=== PATIENT | female | born 1940 | race Caucasian/White ===

== ENCOUNTER → 2018-09-07 | Outpatient (CLI) | payer MEDICARE, OTHER ==
--- NOTE | 2018-09-01 18:19 | CONS ---
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 This lesion abuts chest wall and underlying bleb making biopsy risky. We were asked to see regarding empiric definitive stereotactic radiation in her care. ICD-10: C34.12. HISTORY OF PRESENT ILLNESS: The patient is a 78-year-old woman with longstanding COPD. She continues to smoke 1/2 pack per day. She was seen and underwent screening chest x-ray in May 2018, which revealed a suspicious pulmonary nodule by report. She then underwent a CT scan of the chest to confirm this at [facility] on 05/27/2018. This revealed a lobular 1 cm nodule with surrounding fibrosis and scarring in the left upper lobe. Followup PET CT imaging was recommended. She underwent PET CT imaging on 08/05/2018. This revealed a 10 mm subpleural nodule in the left upper lobe with increased metabolic uptake with an SUV of 6.5. No other sites of significant uptake or nodularity were seen elsewhere. On my review, it measured approximately 1.5 x 0.9 cm in size and was more plump on PET CT from 07/[address] imaging from 05/2018 suggestive of modest progression of disease. During this time, she has had no interval symptomatic changes. She has had palpitations on and off for 7 years, unchanged. No significant chest pain. Her shortness of breath with exertion is unchanged. Otherwise, breathing is satisfactory. Some modest cough, nonproductive in nature. She has smoked from age 19 to age 78 1/2-3/4 packs a day and continues to smoke to this time. She lives independently following her 's loss 7 years ago from end-stage COPD. She has had slow weight loss from 143 to 122 pounds over the last 6 years. She has had no headache, nausea or vomiting. She was seen by Dr. Olivia Elizabeth in pulmonary evaluation at which time stereotactic treatment was recommended as the preferred treatment choice. PAST MEDICAL HISTORY: Remarkable for COPD, hypertension, anxiety, bilateral cataract extractions, cholecystectomy, colonoscopy with polypectomy. ALLERGIES: CIPRO CAUSES NAUSEA, SULFATE CAUSES NAUSEA. FAMILY HISTORY: Unremarkable for malignancy. MEDICATIONS: Alprazolam, baby aspirin, flute, fluticasone nasal spray, metoprolol and she will now begin ProAir and Anoro Ellipta inhaler. SOCIAL HISTORY: for 7 years, has 2 daughters who live nearby. Lives independently, retired housewife, continuous smoker, age 19 to age 78 as noted, nonalcohol user. No significant hobbies. PHYSICAL EXAMINATION: GENERAL: Revealed a pleasant, thin woman, appearing her chronologic age. VITAL SIGNS: Weight 122 pounds, blood pressure 122/72, pulse oximetry on room air 97%. HEENT: Revealed fair dentition. No scleral icterus. LYMPH NODES: No palpable cervical or supraclavicular or axillary adenopathy. LUNGS: Decreased breath sounds, no wheezes or rhonchi. HEART: Regular. No gallop or murmur. ABDOMEN: Unremarkable. EXTREMITIES: Reveal no clubbing, cyanosis or edema. NEUROLOGIC: She was alert, appropriate and provided good history. No neurologic deficits noted. LABORATORY DATA: Baseline CBC and chemistry panel are not yet available. Pulmonary function test from 08/19/2018, FEV1 1.12 liters, FVC 2.05 liters and 51% and 71% predicted respectively. In summary, my impression is that of stage I bronchogenic carcinoma of the left upper lobe based on CT and PET scan imaging. Her lesion is close to a bleb and underlying a rib. Biopsy would be difficult and be at risk for post-biopsy pneumothorax. She is a poor candidate for considering surgery. At this time, I offered consideration of ongoing observation versus empiric stereotactic treatment now given that it appears somewhat rounder or plumper in size over the 2-month period suggesting modest progression. She and her daughters were interested in pursuing treatment now rather than observation. I think this was a rational choice. We anticipate a 10 fraction course of treatment, extending the fractionation and reduced daily dose due to the abutment of the chest wall by the malignancy. I discussed treatment, its goals and toxicities in detail with the patient and she elected to proceed I also discussed the critical value of smoking cessation with the patient and her daughter. Thank you for allowing me to participate in her evaluation. TERRI STEVE MD DR: REMI/jeremy JOB#: [id number] / [id number] Kelly Estrella MD
[~2018-09-07] MED LIST: ALBU2.5V8 INH; ALPR0.254 PO; ASPI81TA50 PO; FLUT16SP NS; METO25TA2 PO; RANI-376; UMEC1DIS IH
== END | disposition home or self-care (01) ==
LOC: ONC 08-31 12:16
PROVIDERS: ATTEND Radiology Radiation Oncology
DX: C34.12 Malignant neoplasm of upper lobe, left bronchus or lung (principal); J44.9 Chronic obstructive pulmonary disease, unspecified; I10 Essential (primary) hypertension; F41.9 Anxiety disorder, unspecified; Z90.49 Acquired absence of other specified parts of digestive tract; Z98.42 Cataract extraction status, left eye; Z98.41 Cataract extraction status, right eye; Z87.891 Personal history of nicotine dependence
CPT/HCPCS: 77300; 77301; 77334; 77338; 99203; G0463

== ENCOUNTER → 2020-09-28 | Outpatient (CLI) | payer MEDICARE, OTHER ==
--- NOTE | 2020-09-28 19:02 | RAD ---
EXAM: NM PET/CT SKULL BASE TO MID THIGH EXAM DATE: 09/28/2020 INDICATION: Reason: L LUNG CA C34.12 / Spl. Instructions: / History: RADIOPHARMACEUTICAL: 12.3 mCi of F-18 Fluorodeoxyglucose (FDG) I.V. via the left antecubital fossa. TECHNIQUE: Patient weight: 130 pounds. Following at least four-hour fasting, the patient's blood gluc ose was 106 mg/dl. Approximately an hour and a half after administration of FDG, overlapping emissio n scanning was performed from the orbital meatal line through the pelvis. A low-dose CT was performe d for attenuation correction purposes and anatomic localization. Fused images of PET and CT were revi ewed. Any standardized uptake values (SUV) reported are maximum values within a volume region of int erest, expressed in gm/ml. COMPARISON: Chest CT without IV contrast of 03/09/2020 FINDINGS: PET: In the head and neck, no abnormal FDG uptake. In the chest, dominant nodule in the anterior superior left upper lobe abutting the pleura shows abno rmal FDG uptake to max SUV of 6.2. There is a cluster of small pulmonary nodules in the right lung apex at the same level that showed co mbined FDG uptake to max SUV of 2.2. The background mediastinal activity shows a max SUV of 2.6. No other abnormal FDG uptake in the chest. In the abdomen and pelvis, there is subtle FDG uptake in the lateral limb left adrenal gland to max S UV of 3.9. In the bones, subtle FDG uptake to max SUV of 2.9 is present in the lateral left seventh rib, associa mali with a nondisplaced fracture (image 198 series 3). CT: In the head and neck, no mass or adenopathy is apparent. Chest shows background centrilobular emphysema the lungs no pleural effusion or CT evidence of thorac ic adenopathy on noncontrast imaging. The left upper lobe pulmonary nodule appears marginally larger compared with the previous study, stacie uring 1.7 x 1.8 cm AP by transverse diameter compared with 1.2 x 1.0 cm at the comparable level (imag e 120 series 3 this exam compared with image 89 series 2 on 03/09/2020). Likewise, cluster of nodules on the right lung apex are marginally larger in the interval. In particu lar, the more peripheral of the clustered nodules (image 112 series 3 this exam) is larger, now measu ring 6 mm, compared with 2 mm previously (image 78 series 2 as the prior exam). No new pulmonary nodu les identified. The heart is normal in size shows multivessel coronary calcifications. The thoracic aorta is is jorge l in caliber. Abdomen and pelvis show mild fullness of the left adrenal gland without a discrete mass. There is res piratory motion artifact that degrades detailed assessment. No bulky abdominal adenopathy. There are curvilinear densities near the gallbladder fossa of uncertain significance. This could represent a couch rgical repair of a biopsy site. The gallbladder is not well seen and may be surgically absent. The bowel shows no evidence of obstruction, perforation or acute inflammation. There is extensive col onic diverticuli. The urinary bladder is unremarkable. The uterus is not seen and may be absent. No adnexal mass. No pe lvic free fluid or fluid collection. The bones are demineralized. No acute or aggressive osseous lesions are seen. IMPRESSION: 1. Left upper lobe pulmonary nodule is marginally larger in the interval which could reflect posttrea tment changes. Max SUV FDG activity currently is 6.2. Recommend correlation with previous imaging whe n available. 2. Slight interval increase in nodularity of the right lung apex, max SUV of 2.2, close to background mediastinal uptake. Attention on follow-up recommended. Electronically signed by: Jose Lawrence MD (09/28/2020 6:59 PM) [id number]
== END ==
LOC: PETSC 10:23
PROVIDERS: ATTEND Radiology Radiation Oncology
DX: C34.12 Malignant neoplasm of upper lobe, left bronchus or lung (principal); J43.2 Centrilobular emphysema; R91.8 Other nonspecific abnormal finding of lung field; I25.10 Atherosclerotic heart disease of native coronary artery without angina pectoris
CPT/HCPCS: 78815; A9552

== ENCOUNTER 2020-10-08 08:15 | Outpatient (CLI) | payer MEDICARE, OTHER ==
[~2020-10-08] VITALS: Ht 165.1 cm; Wt 60.8 kg
[2020-10-08] VITALS (13 sets, daily range): BP systolic 92–146; BP diastolic 50–85
[2020-10-08] MEDS ORDERED: LIDOCAINE WITH 8.4% SOD BICARB 3 ML DISP.SYRIN. ONE (08:51)
[2020-10-08] MEDS ORDERED: TRAM50TA PO (08:55)
[2020-10-08] MEDS ORDERED: PRAV10TA2 PO (08:55)
[2020-10-08] MEDS ORDERED: MIDAZOLAM HCL/PF 2 MG/2 ML VIAL. ONE (08:57)
[2020-10-08] MEDS ORDERED: fentaNYL PF VIAL 100 MCG/2 ML VIAL ONE (08:58)
[2020-10-08 09:05] LABS: BASO # 0.1 x10^3/uL (0.0-0.2); BASO % 1 % (0-3); EOS # 0.3 x10^3/uL (0.0-0.7); EOS % 4 % (0-3); HEMATOCRIT 46.6 % (36.0-47.0); HEMOGLOBIN 15.3 g/dL (12.0-15.5); LYMPH # 1.8 x10^3/uL (1.0-4.8); LYMPH % 25 % (24-48); MEAN CORPUSCULAR HEMOGLOBIN 30 pg (25-35); MEAN CORPUSCULAR HGB CONC 33 g/dL (31-37); MEAN CORPUSCULAR VOLUME 91 fL (79-100); MONO # 0.5 x10^3/uL (0.0-1.1); MONO % 7 % (0-9); NEUT # 4.6 x10^3/uL (1.8-7.7); NEUT % 63 % (31-73); PLATELET COUNT 203 x10^3/uL (140-400); RED BLOOD COUNT 5.15 x10^6/uL (3.50-5.40); RED CELL DISTRIBUTION WIDTH 13.9 % (11.5-14.5); WHITE BLOOD COUNT 7.2 x10^3/uL (4.0-11.0)
[2020-10-08 09:08] LABS: CALCIUM 8.9 mg/dL (8.5-10.1); CREATININE 0.8 mg/dL (0.6-1.0); GFR 69.4; POTASSIUM 4.4 mmol/L (3.5-5.1)
[2020-10-08] MEDS ORDERED: fentaNYL PF VIAL 100 MCG/2 ML VIAL IV ONE (09:15)
[2020-10-08] MEDS ORDERED: MIDAZOLAM HCL/PF 2 MG/2 ML VIAL. IV ONE (09:15)
[2020-10-08] MEDS ORDERED: LIDOCAINE WITH 8.4% SOD BICARB 3 ML DISP.SYRIN. IJ ONE (09:15)
[2020-10-08 09:21] LABS: PROTHROMBIN TIME PATIENT 12.8 SEC (11.7-14.0)
--- NOTE | 2020-10-08 12:14 | NUR ---
PIV removed. D/C instructions provided on site care, sedation, biopsy. Patient and daughter verbalized understanding. No bleeding noted at this time. Patient taken to vehicle w/ daughter, who is driving, via wheelchair. Addendum: 10/08/20 at 1217 by DRISS GRAHAM RN All belongings, including cell phone, taken w/ patient at time of d/c.
--- NOTE | 2020-10-08 14:12 | RAD ---
10/08/2020 12:07 PM Procedure: CT-guided biopsy, left upper lung nodule Clinical Indication: History of lung cancer, PET avid left upper lung nodule Discussion: The procedure was explained in its entirety to the patient or the patients designated sales representative church furniture by a member of the treatment team, including a discussion of the risks, benefits and commonly accepted alternatives to the procedure, as well as the expected consequences of no therapy whatsoever. Discussion of the risks included, but was not limited to, those that are most frequent and those that are rare but possibly severe or life-threatening, as well as the possibility of unforeseen complications. All elements of maximal sterile barrier technique including the use of a cap, mask, sterile gown, sterile gloves, large sterile sheet, appropriate hand hygiene, and 2% chlorhexidine for cutaneous antisepsis (or acceptable alternative antiseptic per current guidelines) were followed for this procedure. The patient was placed in the supine position on the CT scanner. Timeout procedure was performed. Left upper chest was prepped and draped using sterile barrier technique. 1% lidocaine was administered for local anesthesia. Under intermittent CT guidance a 17-gauge needles advanced into the nodule. Core biopsy samples were obtained. A pneumothorax prevention device was deployed as the guiding needle was removed. Repeat imaging demonstrates no pneumothorax or other immediate complication. The patient tolerated the procedure well. The procedures performed under conscious sedation including continuous cardiopulmonary monitoring via dedicated sedation nurse. Kbdi-es-aqrg sedation time: 20 minutes Impression: CT-guided biopsy, left upper lung nodule PQRS Compliance Statement: One or more of the following individualized dose reduction techniques were utilized for this examination: 1. Automated exposure control 2. Adjustment of the mA and/or kV according to patient size 3. Use of iterative reconstruction technique
--- NOTE | 2020-10-08 17:08 | RAD ---
EXAM: XR CHEST 1V INDICATION: Reason: 1200 followup CXR / Spl. Instructions: / History: . TECHNIQUE: Single view COMPARISON: CT-guided lung biopsy of 10/08/2020 FINDINGS: The heart size is normal. The great vessels appear unremarkable. There is no hilar or mediastinal mass. Lungs show emphysematous changes and an ill-defined opacity in the left upper lung compatible with re cently biopsied lung nodule. There is no pleural effusion or pneumothorax. There are no significant osseous abnormalities. IMPRESSION: No evidence of a pneumothorax status post post left upper lobe lung biopsy. Electronically signed by: Jose Lawrence MD (10/08/2020 5:05 PM) [id number]
--- NOTE | 2020-10-10 15:09 | PATHOLOGY ---
[facility] Accession Number: [id number] . 01 Material submitted: . lung - LEFT LUNG BIOPSY. Modifiers: left . 01 Clinical history: . LEFT UPPER LOBE LUNG BIOPSY . 02 Diagnosis: Lung tissue, left upper lobe lung needle biopsies: - SQUAMOUS CELL CARCINOMA. SEE COMMENT. (JPM:jason; 10/10/2020) QMS 10/10/2020 0930 Local . 02 Comment: Sections of the left upper lobe lung needle biopsy show extensive replacement of lung parenchyma by a malignant epithelial neoplasm. The tumor cells are present in irregular solid nests within an inflamed reactive desmoplastic stroma. The tumor cells have modest amounts of pale eosinophilic cytoplasm, and possess rounded to ovoid, mild to focally moderately pleomorphic nuclei. There is no evidence of keratinization. Several mitotic figures are noted. There is no evidence of glandular differentiation. A panel of immunoperoxidase stains is obtained on block A1 and yield the following results: . Cytokeratin 7: Tumor cells focally positive; residual pneumocytes strongly positive P40: Tumor cells positive Chromogranin: Tumor cells negative CD56: Tumor cells negative Synaptophysin: Tumor cells negative TTF-1: Tumor cells negative; residual pneumocytes positive Napsin A: Tumor cells negative; residual pneumocytes positive Ki-67: Tumor cells show relatively low proliferation index. . The morphologic and immunophenotypic findings are supportive of the diagnosis of a moderately differentiated squamous cell carcinoma. The case has been co-reviewed by Dr. Ruff, who concurs with the diagnosis on 10/10/20. The results are reported to Dr. Doan on 10/10/2020. (JPM:jason; 10/10/2020) . Special stains performed: Immunoperoxidase stains for CK7, p40, chromogranin, CD56, synaptophysin, TTF-1, napsin A, Ki-67. . 02 Electronically signed: . Leandro Gordon MD, Pathologist NPI- [id number] . 01 Gross description: . The specimen is received in formalin, labeled "Meera Sampson, left lung biopsy". Received is a single needle core of pale rabago soft tissue measuring 1.0 cm in length by 0.1 cm in diameter. The specimen is submitted entirely in cassette A1. (CAA; 10/08/2020) QAC/QAC 10/08/2020 1729 Local . 02 Pathologist provided ICD-10: C34.12 . 02 CPT . 946059, H20504, Q29026 Specimen Comment: Report sent to / Performed at: 01 [facility] [address], [place] [id number] MD Kobe Romeo MD Phone: [phone] Performed at: 02 [facility] [address], [place] [id number] MD Leandro Gordon MD Phone: [phone]
== END 2020-10-08 12:18 | disposition home or self-care (01) ==
LOC: INTRAD 08:15
PROVIDERS: ATTEND Radiology Radiation Oncology
DX: C34.12 Malignant neoplasm of upper lobe, left bronchus or lung (principal); I10 Essential (primary) hypertension; E78.00 Pure hypercholesterolemia, unspecified; J44.9 Chronic obstructive pulmonary disease, unspecified; K21.9 Gastro-esophageal reflux disease without esophagitis; F17.210 Nicotine dependence, cigarettes, uncomplicated; Z90.49 Acquired absence of other specified parts of digestive tract; Z98.890 Other specified postprocedural states; Z79.899 Other long term (current) drug therapy; Z79.82 Long term (current) use of aspirin; Z88.2 Allergy status to sulfonamides; Z88.1 Allergy status to other antibiotic agents; Z20.822 Contact with and (suspected) exposure to COVID-19
CPT/HCPCS: 32408; 36415; 71045; 80048; 85025; 85610; 87426; 99152; C9803; J2250; J3010; J3490; U0003; 88305; 88341; 88342

== ENCOUNTER → 2021-04-05 | Outpatient (CLI) | payer MEDICARE, OTHER ==
[2020-10-08 12:00] VITALS: BP 92/50
[~2021-04-05] MED LIST changes: +PRAV10TA2 PO; +TRAM50TA PO
--- NOTE | 2021-04-05 13:16 | RAD ---
EXAM: Dual modality PET-CT Scan DATE: 04/05/2021 RADIOPHARMACEUTICAL: 15 mCi F-18 fluorodeoxyglucose (FDG) IV. CLINICAL HISTORY: Lung cancer restaging. COMPARISON: 09/28/2020 TECHNIQUE: Approximately 45 minutes after tracer administration, routine, attenuation-corrected Posit ángel Emission Tomography (PET) images were obtained from the level of the base of the skull through th e level of the mid thighs. Tomographic reconstructions are reviewed in coronal, transaxial and sagitt al planes. Non-contrast CT imaging was performed for attenuation correction and localization purpose s only. These images do not constitute a diagnostic-quality CT examination and were not used to diag nose disease independently of the PET images. The blood glucose level was 91 mg/dL at the time of FDG administration. *One or more of the following individualized dose reduction techniques were utilized for this examina tion: 1. Automated exposure control. 2. Adjustment of the mA and/or kV according to patient size. 3. Use of iterative reconstruction technique. FINDINGS: There is increased radiotracer activity with a maximum SUV of 3.9 associated with a 1.8 cm anterior right upper lobe nodule with adjacent 8 mm spiculated nodule and surrounding groundglass. There is increased radiotracer activity with a maximum SUV of 3.1 associated with a 1.5 cm pleural-ba sed nodule with adjacent groundglass and architectural distortion within the anterior left upper lobe . There is increased radiotracer activity within maximum SUV of 4.3 associated with a 1.2 cm nodule wit h surrounding groundglass within the superior segment of the right lower lobe. There is increased radiotracer activity associated with thickening of the left greater than right adr enal gland, with SUVs of 4.8 and 4.3. There is nonspecific increased radiotracer activity within SUV of 2.5 within the nonenlarged right hi lar lymph node. No additional lymph node with radiotracer activity above the blood pool is seen. The CT portion of the exam demonstrates a pleural-based nodule with adjacent groundglass opacity and architectural distortion within the anterior left upper lobe measuring approximately 1.5 cm. This is decreased compared to the prior PET/CT. There is a 1.8 cm anterior right upper lobe nodule with adjac ent 8 mm spiculated nodule and surrounding groundglass. This is increased compared to the prior study . There is a 1.2 cm nodule with surrounding groundglass within the superior segment of the right lowe r lobe. This is increased compared to the prior study. There is pleural parenchymal scarring within the lingula and medial right middle lobe. There is emphy sema. There is no pleural effusion or pneumothorax. The heart is normal in size. There is aortic and coronary artery atherosclerosis. There are nonspecific mediastinal lymph nodes. For reference purpose s, there is a 9 mm precarinal lymph node. Stable compared to the prior study. There are calcified lef t hilar and lingular granulomas. No hepatic lesion is seen. No pancreatic lesion is seen. There are splenic granulomas. The adrenal gl ands are unremarkable. There are simple cysts within both kidneys. Follow-up isn't routinely performe d for simple cysts. No abnormally thickened or dilated loop of bowel is seen. There is colonic divert iculosis. The bladder is empty. The uterus and adnexal regions are unremarkable. No pathologically en larged mesenteric or retroperitoneal lymph node is seen. The visualized portions of the brain demonstrate mild age-appropriate cerebral volume loss and cerebr al white matter changes due to chronic small vessel disease. There is evidence of lens surgery. There is no neck lymphadenopathy. There is calcified atherosclerotic plaque involving the carotid bifurcat ions. There are degenerative changes throughout the spine. There is no acute or suspicious osseous le jose. IMPRESSION: 1. Interval increase in a 1.2 cm radiotracer avid nodule with surrounding groundglass within the supe rior segment of the right lower lobe with an SUV of 4.3, the appearance of which is concerning for pr imary bronchogenic neoplasm. 2. Interval increase in a 1.8 cm radiotracer avid nodule with adjacent radiotracer avid 8 mm spiculat ed nodule within the anterior right upper lobe with a maximum SUV of 3.9, the appearance of which is concerning for primary bronchogenic neoplasm. 3. Interval decrease in the size of a 1.5 cm pleural-based nodule with adjacent groundglass and archi tectural distortion within the anterior left upper lobe with a maximum SUV of 3.1. This previously de monstrated an SUV of 6.2, favoring interval treatment response. 4. Increased activity involving thickened left greater than right adrenal glands with SUVs of 4.8 and 4.3. This is increased compared to the prior study. Metastatic disease is not excluded. 5. Mild radiotracer activity within SUV of 2.5 within a nonenlarged nonspecific right hilar lymph nod e. No additional lymph node with abnormal radiotracer activity above the blood pool is seen. 6. Please refer to the above report for additional findings regarding the non-PET portion of the exam . Electronically signed by: Karen Go MD (04/05/2021 1:13 PM) [id number]
== END ==
LOC: PETSC 08:30
PROVIDERS: ATTEND Radiology Radiation Oncology
DX: C34.12 Malignant neoplasm of upper lobe, left bronchus or lung (principal); R91.8 Other nonspecific abnormal finding of lung field; J43.9 Emphysema, unspecified; I25.10 Atherosclerotic heart disease of native coronary artery without angina pectoris; K57.30 Diverticulosis of large intestine without perforation or abscess without bleeding; M47.819 Spondylosis without myelopathy or radiculopathy, site unspecified; R90.82 White matter disease, unspecified; K13.4 Granuloma and granuloma-like lesions of oral mucosa
CPT/HCPCS: 78815; A9552

== ENCOUNTER 2021-04-16 08:55 | Inpatient (IN) | payer MEDICARE, OTHER ==
[2021-04-16] VITALS (16 sets, daily range): BP systolic 94–154; BP diastolic 45–83
[~2021-04-16] VITALS: Ht 165.1 cm; Wt 54.8 kg
[2021-04-16 09:49] LABS: BASO # 0.1 x10^3/uL (0.0-0.2); BASO % 1 % (0-3); EOS # 0.2 x10^3/uL (0.0-0.7); EOS % 3 % (0-3); HEMOGLOBIN 15.6 g/dL (12.0-15.5); LYMPH # 1.4 x10^3/uL (1.0-4.8); LYMPH % 18 % (24-48); MEAN CORPUSCULAR HEMOGLOBIN 30 pg (25-35); MEAN CORPUSCULAR HGB CONC 34 g/dL (31-37); MEAN CORPUSCULAR VOLUME 90 fL (79-100); MONO # 0.5 x10^3/uL (0.0-1.1); MONO % 7 % (0-9); NEUT # 5.6 x10^3/uL (1.8-7.7); NEUT % 71 % (31-73); PLATELET COUNT 208 x10^3/uL (140-400); RED BLOOD COUNT 5.13 x10^6/uL (3.50-5.40); WHITE BLOOD COUNT 7.8 x10^3/uL (4.0-11.0)
[2021-04-16] MEDS ORDERED: LIDOCAINE WITH 8.4% SOD BICARB 3 ML DISP.SYRIN. ONE (10:12)
[2021-04-16] MEDS ORDERED: fentaNYL PF VIAL 100 MCG/2 ML VIAL ONE (10:37)
[2021-04-16] MEDS ORDERED: MIDAZOLAM HCL/PF 2 MG/2 ML VIAL. ONE (10:37)
[2021-04-16] MEDS ORDERED: MIDAZOLAM HCL/PF 2 MG/2 ML VIAL. IV ONE (11:00)
[2021-04-16] MEDS ORDERED: LIDOCAINE WITH 8.4% SOD BICARB 3 ML DISP.SYRIN. IJ ONE (11:00)
[2021-04-16] MEDS ORDERED: fentaNYL PF VIAL 100 MCG/2 ML VIAL IV ONE (11:00)
--- NOTE | 2021-04-16 13:13 | NUR ---
Pt transferred to room 578; report given to Nayana, prior to transfer. Pt taken up per cart, with no complications. Pt stood and transferred from the cart to the bed. Pt denies any increased SOB, chest pain, or discomfort. When inspecting site after pt. transfer; there was subcutaneous air noted. Dr. Esteves walked in the room at the time; and subcutaneous air was noted with him. He explained to Ric Zelaya RN and the patient that he was going to consult pulmonary. Dr. Parson also notified of pt's subcutaneous air. Transfer of care completed in the room with Alejandrina BARBA; subcutaneous air assessment completed with Alejandrina BARBA, and border marked with brandee.
--- NOTE | 2021-04-16 14:50 | RAD ---
EXAMINATION: XR CHEST 1V CLINICAL HISTORY: Follow-up pneumothorax post right lung biopsy EXAM DATE/TIME: 04/16/2021 1:19 PM COMPARISON: CT chest 03/09/2020 FINDINGS: Lines, Tubes, and Devices: Right pigtail pleural drainage catheter with abrupt angulation in the cath eter several centimeters proximal to the pigtail, cannot exclude a kink in the catheter tubing. Cardiomediastinal Silhouette: Normal heart size. Aortic atherosclerotic calcification. Lungs and Pleura: Small right apical pneumothorax. Mild patchy opacities predominantly in the right l ower lung zone, likely postprocedural and may be related to subsegmental atelectasis. Curvilinear and patchy scarring in the left upper lung zone. Small patchy opacity in the right upper lung zone, bett er appreciated on comparison CT. No evidence of pleural effusion. Bones and Soft Tissues: Degenerative changes and mild levoconvex curvature and the thoracic spine. IMPRESSION: Small right apical pneumothorax and probable postprocedural changes in the right lung as described. Right pigtail pleural drainage catheter, possibly kinked as described. Recommend clinical correlation . Additional nonacute findings as described. Electronically signed by: Garry Mcmahon DO (04/16/2021 2:47 PM) [facility]
--- NOTE | 2021-04-16 15:11 | RAD ---
CT-guided biopsy, right lower lobe pulmonary nodule INDICATION: History of left upper lobe lung cancer. 2 right-sided enlarging nodules which are PET shira d or seen on most recent imaging from April 05, 2021. Radiation oncologist requests biopsy. Consent: The procedure was explained in its entirety to the patient or the patients designated repres entative by a member of the treatment team, including a discussion of the risks, benefits and commonl y accepted alternatives to the procedure, as well as the expected consequences of no therapy whatsoev er. Discussion of the risks included, but was not limited to, those that are most frequent and thos e that are rare but possibly severe or life-threatening, as well as the possibility of unforeseen com plications. The patient was placed on the CT scanner in the prone position. A timeout procedure was performed. CT imaging redemonstrates a nodule in the right lower lobe measuring approximately 9 mm in diameter. The patient was prepped and draped using maximum sterile technique, including the use of: Current seth deline approved cutaneous antisepsis, a large sterile sheet to establish a sterile field. Additionall y the synthetic resin operator wore a hat, mask, sterile gloves, a sterile gown during the procedure. 1% lidocaine wa s administered for local anesthesia. Under intermittent CT guidance a 17-gauge needle was advanced pe ripherally to the nodule. Core biopsy samples were obtained. The needle was removed. Postbiopsy CT im aging was then performed demonstrating a large and increasing pneumothorax. A chest tube was felt to be necessary. 5 Citizen [place] sheathed needle was advanced into the pleural space from a posterior approach. A guidewire is advanced into the pleural space over which following dilatation and 8 Citizen [place] pigtail chest tube was placed. Air was freely aspirated. Catheter position was confirmed with CT. The cathete r was connected to Pleur-evac device at -20 cm water. The patient was admitted for observation. Inter nal medicine and pulmonary consults were obtained. IMPRESSION: 1. CT-guided biopsy, right lower lobe pulmonary nodule 2. CT-guided placement of right thoracostomy tube for postbiopsy pneumothorax Electronically signed by: Prince Parson MD (04/16/2021 3:09 PM) [id number]
--- NOTE | 2021-04-16 15:11 | RAD ---
CT-guided biopsy, right lower lobe pulmonary nodule INDICATION: History of left upper lobe lung cancer. 2 right-sided enlarging nodules which are PET shira d or seen on most recent imaging from April 05, 2021. Radiation oncologist requests biopsy. Consent: The procedure was explained in its entirety to the patient or the patients designated repres entative by a member of the treatment team, including a discussion of the risks, benefits and commonl y accepted alternatives to the procedure, as well as the expected consequences of no therapy whatsoev er. Discussion of the risks included, but was not limited to, those that are most frequent and thos e that are rare but possibly severe or life-threatening, as well as the possibility of unforeseen com plications. The patient was placed on the CT scanner in the prone position. A timeout procedure was performed. CT imaging redemonstrates a nodule in the right lower lobe measuring approximately 9 mm in diameter. The patient was prepped and draped using maximum sterile technique, including the use of: Current seth deline approved cutaneous antisepsis, a large sterile sheet to establish a sterile field. Additionall y the plunger scoop operator wore a hat, mask, sterile gloves, a sterile gown during the procedure. 1% lidocaine wa s administered for local anesthesia. Under intermittent CT guidance a 17-gauge needle was advanced pe ripherally to the nodule. Core biopsy samples were obtained. The needle was removed. Postbiopsy CT im aging was then performed demonstrating a large and increasing pneumothorax. A chest tube was felt to be necessary. 5 Maur[place]ian sheathed needle was advanced into the pleural space from a posterior approach. A guidewire is advanced into the pleural space over which following dilatation and 8 [place]ian pigtail chest tube was placed. Air was freely aspirated. Catheter position was confirmed with CT. The cathete r was connected to Pleur-evac device at -20 cm water. The patient was admitted for observation. Inter nal medicine and pulmonary consults were obtained. IMPRESSION: 1. CT-guided biopsy, right lower lobe pulmonary nodule 2. CT-guided placement of right thoracostomy tube for postbiopsy pneumothorax Electronically signed by: Prince Parson MD (04/16/2021 3:09 PM) [id number]
--- NOTE | 2021-04-16 15:18 | HP ---
ADMIT DATE: 04/16/2021 CHIEF COMPLAINT: Pneumothorax. HISTORY OF PRESENT ILLNESS: The patient is a pleasant elderly female who has known lung cancer. She actually has undergone radiation therapy and I think chemotherapy. Things have been going well, but she now has developed a new left lung nodule. The patient was sent in to Dr. Parson of the Interventional Radiology department to do a biopsy of the lung nodule. Postprocedure, she had a small pneumothorax. Dr. Parson called me and explained the situation. We have decided to admit the patient. We placed a chest tube. We are consulting Pulmonary Medicine. PAST MEDICAL HISTORY: COPD, lung cancer, radiation therapy, chemotherapy, asthma, hyperlipidemia, hypertension, arthritis, allergic rhinitis. ALLERGIES: SULFA AND CIPRO. FAMILY HISTORY: Diabetes. SOCIAL HISTORY: She quit smoking. No drinking or drugs. MEDICATIONS: Reviewed. She is on Anoro Ellipta, albuterol, pravastatin, Toprol-XL, aspirin, Ultram, and fluticasone. REVIEW OF SYSTEMS: GENERAL: No history of weight change, weakness or fevers. SKIN: No bruising, hair changes or rashes. EYES: No blurred, double or loss of vision. NOSE AND THROAT: No history of nosebleeds, hoarseness or sore throat. HEART: No history of palpitations, chest pain or shortness of breath on exertion. LUNGS: Denies cough, hemoptysis, wheezing or shortness of breath. GASTROINTESTINAL: Denies changes in appetite, nausea, vomiting, diarrhea or constipation. GENITOURINARY: No history of frequency, urgency, hesitancy or nocturia. NEUROLOGIC: Denies history of numbness, tingling, tremor or weakness. PSYCHIATRIC: No history of panic, anxiety or depression. ENDOCRINE: No history of heat or cold intolerance, polyuria or polydipsia. EXTREMITIES: Denies muscle weakness, joint pain, pain on walking or stiffness. PHYSICAL EXAMINATION: VITALS: Within normal limits and are stable. GENERAL: No apparent distress. Alert and oriented. HEENT: Normal cephalic atraumatic, external auditory canals are patent. Eyes: Extraocular muscles are intact, pupils are equally round and reactive to light and accommodation. MUSCULOSKELETAL: Well developed, well nourished, good range of motion. ENDOCRINE: No thyromegaly was palpated. LYMPHATICS: No cervical chain or axillary nodes were noted. HEMATOPOIETIC: No bruising. NECK: Supple, no JVD, no thyromegaly was noted. LUNGS: She has a chest tube on the right. she has some crackles on the right, decreased breath sounds on the left. HEART: RRR, S1, S2 present. Peripheral pulses intact, no obvious murmurs were noted. ABDOMEN: Soft, nontender. Positive bowel sounds no organomegaly, normal bowel sounds. EXTREMITIES: Without any cyanosis, clubbing, or edema. Pedal pulses intact, Homans sign is negative. NEUROLOGIC: Normal speech, normal tone. A and O x 3, moves all extremities, no obvious focal deficits. PSYCHIATRIC: Normal affect, normal mood. Stable. SKIN: No ulcerations or rashes, good skin turgor, no jaundice. VASCULAR: Good capillary refill, neurovascular bundle appears to be intact. LABORATORY DATA: White count 7, hemoglobin 15.6, platelets 208. INR is 1. Chest x-ray is pending. ASSESSMENT AND PLAN: Post-procedure pneumothorax in an elderly female who has lung cancer and a new lung nodule. We are going to consult Pulmonary Medicine and consult Radiation Oncology. We have already consulted Dr. Parson. He has got the chest tube in place. We will monitor her chest tube. Home medications. Deep venous thrombosis prophylaxis. Full code. PRN fentanyl. Trend labs. NARINDER/SUDHA FOX: NARINDER/jeremy TID: [id number]
--- NOTE | 2021-04-16 19:30 | NUR ---
Pt arrived on unit by bed at 1250. Report previously received from JAMESON Merino. POC/orders reviewed, tele monitor applied. Pt sinus baylee on the monitor. Pt rating pain in upper right back at 3/10. Chest tube to continuous suction. On 2L NC. Alejandrina RN notified this RN of subcutaneous air around chest tube site. Site assessed by this RN at later time. Pt has no additional concerns. Will assume care.
[2021-04-16] MEDS ORDERED: oxyCODONE/APAP 5/325 1 TAB TABLET PO PRN (21:15)
[2021-04-16] MEDS ORDERED: IBUPROFEN 400 MG TABLET. PO PRN (21:15)
[2021-04-16] MEDS: ATORVASTATIN CALCIUM 10 MG TABLET. PO SCH (21:29)
[2021-04-16] MEDS ORDERED: ALBUTEROL SULFATE 2.5 MG/3 ML NEBU. NEB PRN (21:30)
[2021-04-17 02:54] VITALS: BP 92/50
[2021-04-17 07:00] VITALS: BP 116/64
[2021-04-17 07:00] LABS: BASO # 0.1 x10^3/uL (0.0-0.2); BASO % 1 % (0-3); EOS # 0.1 x10^3/uL (0.0-0.7); EOS % 2 % (0-3); HEMATOCRIT 46.1 % (36.0-47.0); HEMOGLOBIN 15.1 g/dL (12.0-15.5); LYMPH # 1.9 x10^3/uL (1.0-4.8); LYMPH % 24 % (24-48); MEAN CORPUSCULAR HEMOGLOBIN 30 pg (25-35); MEAN CORPUSCULAR HGB CONC 33 g/dL (31-37); MEAN CORPUSCULAR VOLUME 91 fL (79-100); MONO # 0.5 x10^3/uL (0.0-1.1); MONO % 7 % (0-9); NEUT # 5.4 x10^3/uL (1.8-7.7); NEUT % 67 % (31-73); PLATELET COUNT 197 x10^3/uL (140-400); RED BLOOD COUNT 5.06 x10^6/uL (3.50-5.40); RED CELL DISTRIBUTION WIDTH 14.1 % (11.5-14.5)
[2021-04-17 07:15] LABS: CALCIUM 9.1 mg/dL (8.5-10.1); CREATININE 0.8 mg/dL (0.6-1.0); GFR 69.4; POTASSIUM 4.9 mmol/L (3.5-5.1)
[2021-04-17] MEDS: BUDESONIDE 0.5 MG/2 ML NEBU. NEB SCH ×2 (08:14→19:13)
[2021-04-17] MEDS: IPRATRPIUM/ALBUTEROL 0.5/2.5MG 3 ML NEBU. NEB SCH ×4 (08:14→19:13)
[2021-04-17] MEDS: FLUTICASONE 50MCG/NASAL SPRAY 16GM BOTTLE. NS SCH (09:00)
[2021-04-17] MEDS: ASPIRIN ENTERIC COATED 81 MG TABLET.DR. PO SCH (09:15)
[2021-04-17] MEDS: METOPROLOL SUCC 24HR ER 25 MG TAB.ER.24H. PO SCH (09:15)
[2021-04-17 11:01] VITALS: BP 88/55
--- NOTE | 2021-04-17 11:24 | NUR ---
SW following. Discussed with RN, pt from home alone, room air, cardiac diet. Pt had a lung biopsy - now has a chest tube. PT/OT to work with pt. Dr. Jenkins anticipates possible discharge home today. MORTEZA will continue to follow.
--- NOTE | 2021-04-17 12:40 | RAD ---
EXAM: XR CHEST 1V 04/17/2021 8:55 AM CLINICAL INDICATION: Pneumothorax COMPARISON: Chest radiograph 04/16/2021 TECHNIQUE: AP portable upright view of the chest FINDINGS: Right pigtail pleural catheter is unchanged. The small right apical pneumothorax has mildl y increased in size, still small. There is increased subcutaneous emphysema in the right chest wall. The heart is normal in size. Lungs are well-expanded. Vague nodular opacities in the apices are uncha nged. No pleural effusion. No acute osseous abnormality. IMPRESSION: 1. Mildly increased size of right apical pneumothorax with pleural catheter in place. 2. Increased subcutaneous emphysema in right chest wall. Electronically signed by: Ann Peterson MD (04/17/2021 12:38 PM) [id number]
--- NOTE | 2021-04-17 15:09 | PDOC ---
PULMONARY PROGRESS NOTES DATE: 04/17/21 TIME: 15:08 Vitals Vital Signs Date Time Temp Pulse Resp B/P (MAP) Pulse Ox O2 Delivery O2 Flow Rate FiO2 04/17/21 12:05 98 Nasal Cannula 2.0 04/17/21 11:01 98.0 73 20 88/55 (66) 98.0 Labs Laboratory Tests Test 04/16/21 09:40 04/17/21 06:35 White Blood Count 7.8 x10^3/uL (4.0-11.0) 8.0 x10^3/uL (4.0-11.0) Red Blood Count 5.13 x10^6/uL (3.50-5.40) 5.06 x10^6/uL (3.50-5.40) Hemoglobin 15.6 g/dL (12.0-15.5) 15.1 g/dL (12.0-15.5) Hematocrit 46.0 % (36.0-47.0) 46.1 % (36.0-47.0) Mean Corpuscular Volume 90 fL (79-100) 91 fL (79-100) Mean Corpuscular Hemoglobin 30 pg (25-35) 30 pg (25-35) Mean Corpuscular Hemoglobin Concent 34 g/dL (31-37) 33 g/dL (31-37) Red Cell Distribution Width 14.0 % (11.5-14.5) 14.1 % (11.5-14.5) Platelet Count 208 x10^3/uL (140-400) 197 x10^3/uL (140-400) Neutrophils (%) (Auto) 71 % (31-73) 67 % (31-73) Lymphocytes (%) (Auto) 18 % (24-48) 24 % (24-48) Monocytes (%) (Auto) 7 % (0-9) 7 % (0-9) Eosinophils (%) (Auto) 3 % (0-3) 2 % (0-3) Basophils (%) (Auto) 1 % (0-3) 1 % (0-3) Neutrophils # (Auto) 5.6 x10^3/uL (1.8-7.7) 5.4 x10^3/uL (1.8-7.7) Lymphocytes # (Auto) 1.4 x10^3/uL (1.0-4.8) 1.9 x10^3/uL (1.0-4.8) Monocytes # (Auto) 0.5 x10^3/uL (0.0-1.1) 0.5 x10^3/uL (0.0-1.1) Eosinophils # (Auto) 0.2 x10^3/uL (0.0-0.7) 0.1 x10^3/uL (0.0-0.7) Basophils # (Auto) 0.1 x10^3/uL (0.0-0.2) 0.1 x10^3/uL (0.0-0.2) Prothrombin Time 13.0 SEC (11.7-14.0) Prothromb Time International Ratio 1.0 (0.8-1.1) Sodium Level 142 mmol/L (136-145) Potassium Level 4.9 mmol/L (3.5-5.1) Chloride Level 107 mmol/L (98-107) Carbon Dioxide Level 31 mmol/L (21-32) Anion Gap 4 (6-14) Blood Urea Nitrogen 8 mg/dL (7-20) Creatinine 0.8 mg/dL (0.6-1.0) Estimated GFR (Cockcroft-Gault) 69.4 Glucose Level 96 mg/dL (70-99) Calcium Level 9.1 mg/dL (8.5-10.1) Laboratory Tests Test 04/17/21 06:35 White Blood Count 8.0 x10^3/uL (4.0-11.0) Red Blood Count 5.06 x10^6/uL (3.50-5.40) Hemoglobin 15.1 g/dL (12.0-15.5) Hematocrit 46.1 % (36.0-47.0) Mean Corpuscular Volume 91 fL (79-100) Mean Corpuscular Hemoglobin 30 pg (25-35) Mean Corpuscular Hemoglobin Concent 33 g/dL (31-37) Red Cell Distribution Width 14.1 % (11.5-14.5) Platelet Count 197 x10^3/uL (140-400) Neutrophils (%) (Auto) 67 % (31-73) Lymphocytes (%) (Auto) 24 % (24-48) Monocytes (%) (Auto) 7 % (0-9) Eosinophils (%) (Auto) 2 % (0-3) Basophils (%) (Auto) 1 % (0-3) Neutrophils # (Auto) 5.4 x10^3/uL (1.8-7.7) Lymphocytes # (Auto) 1.9 x10^3/uL (1.0-4.8) Monocytes # (Auto) 0.5 x10^3/uL (0.0-1.1) Eosinophils # (Auto) 0.1 x10^3/uL (0.0-0.7) Basophils # (Auto) 0.1 x10^3/uL (0.0-0.2) Sodium Level 142 mmol/L (136-145) Potassium Level 4.9 mmol/L (3.5-5.1) Chloride Level 107 mmol/L (98-107) Carbon Dioxide Level 31 mmol/L (21-32) Anion Gap 4 (6-14) Blood Urea Nitrogen 8 mg/dL (7-20) Creatinine 0.8 mg/dL (0.6-1.0) Estimated GFR (Cockcroft-Gault) 69.4 Glucose Level 96 mg/dL (70-99) Calcium Level 9.1 mg/dL (8.5-10.1) Medications Active Scripts Medications Dose Route/Sig Max Daily Dose Days Date Category Pravastatin Sodium 10 Mg Tablet 10 Mg PO DAILY 10/08/20 Reported Tramadol Hcl 50 Mg Tablet 50 Mg PO Q6HRS PRN 10/08/20 Reported Fluticasone Propionate Nasal [place] (Fluticasone Propionate) 16 Gm [place].susp 2 [place] NS DAILY 09/02/18 Reported Anoro Ellipta 62.5-25 Mcg Inh (Umeclidinium Brm/Vilanterol Tr) 1 Each Disk.w.dev 1 Each IH DAILY 09/02/18 Reported Proair Hfa Inhaler (Albuterol Sulfate) 8.5 Gm Hfa.aer.ad 1 Puff INH PRN Q6HRS PRN 09/02/18 Reported Toprol Xl (Metoprolol Succinate) 25 Mg Tab.er.24h 12.5 Mg PO DAILY 09/02/18 Reported Aspir-Low (Aspirin) 81 Mg Tablet.dr 81 Mg PO DAILY 09/02/18 Reported Impression . Full note dictated Pneumothorax status post FNA History of lung cancer COPD MARSHALL PAYNE MD Apr 17, 2021 15:09
[2021-04-17 15:11] VITALS: BP 101/67
--- NOTE | 2021-04-17 16:25 | PDOC ---
[facility] PROGRESS NOTE Date of Service DOS: DATE: 04/17/21 TIME: 16:22 Chief Complaint Chief Complaint Pneumothorax after lung biopsy History of Present Illness History of Present Illness The patient is a pleasant elderly female who has known lung cancer. She actually has undergone radiation therapy and I think chemotherapy. Things have been going well, but she now has developed a new left lung nodule. The patient was sent in to Dr. Parson of the Interventional Radiology department to do a biopsy of the lung nodule. Postprocedure, she had a small pneumothorax. Dr. Parson called me and explained the situation. We have decided to admit the patient. We placed a chest tube. We are consulting Pulmonary Medicine. 04/17 Patient evaluated at bedside, she was resting when evaluated. Chest tube is still in place. Chest x-ray x-ray shows mild worsening of pneumo. Pulmonary consulted evaluating. Vitals/I&O Vitals/I&O: Vital Signs Date Time Temp Pulse Resp B/P (MAP) Pulse Ox O2 Delivery O2 Flow Rate FiO2 04/17/21 15:11 98.0 68 20 101/67 (78) 98 Nasal Cannula 2.0 98.0 I & O 04/16/21 04/16/21 04/17/21 15:00 23:00 07:00 Intake Total 300 ml 350 ml Output Total 15 ml Balance 300 ml 335 ml Physical Exam General: Alert, Oriented X3, Cooperative Heart: Regular rate Lungs: Other (Chest tube in place to the right side) Abdomen: Normal bowel sounds, Soft Extremities: No edema, Normal pulses Skin: No significant lesion Labs Labs: Laboratory Tests Test 04/17/21 06:35 White Blood Count 8.0 x10^3/uL (4.0-11.0) Red Blood Count 5.06 x10^6/uL (3.50-5.40) Hemoglobin 15.1 g/dL (12.0-15.5) Hematocrit 46.1 % (36.0-47.0) Mean Corpuscular Volume 91 fL (79-100) Mean Corpuscular Hemoglobin 30 pg (25-35) Mean Corpuscular Hemoglobin Concent 33 g/dL (31-37) Red Cell Distribution Width 14.1 % (11.5-14.5) Platelet Count 197 x10^3/uL (140-400) Neutrophils (%) (Auto) 67 % (31-73) Lymphocytes (%) (Auto) 24 % (24-48) Monocytes (%) (Auto) 7 % (0-9) Eosinophils (%) (Auto) 2 % (0-3) Basophils (%) (Auto) 1 % (0-3) Neutrophils # (Auto) 5.4 x10^3/uL (1.8-7.7) Lymphocytes # (Auto) 1.9 x10^3/uL (1.0-4.8) Monocytes # (Auto) 0.5 x10^3/uL (0.0-1.1) Eosinophils # (Auto) 0.1 x10^3/uL (0.0-0.7) Basophils # (Auto) 0.1 x10^3/uL (0.0-0.2) Sodium Level 142 mmol/L (136-145) Potassium Level 4.9 mmol/L (3.5-5.1) Chloride Level 107 mmol/L (98-107) Carbon Dioxide Level 31 mmol/L (21-32) Anion Gap 4 (6-14) Blood Urea Nitrogen 8 mg/dL (7-20) Creatinine 0.8 mg/dL (0.6-1.0) Estimated GFR (Cockcroft-Gault) 69.4 Glucose Level 96 mg/dL (70-99) Calcium Level 9.1 mg/dL (8.5-10.1) Assessment and Plan Assessmemt and Plan Post-procedure pneumothorax in an elderly female who has lung cancer and a new lung nodule. We are going to consult Pulmonary Medicine and consult Radiation Oncology. We have already consulted Dr. Parson. He has got the chest tube in place. We will monitor her chest tube. Home medications. Deep venous thrombosis prophylaxis. Full code. PRN fentanyl. Trend labs. Comment Review of Relevant I have reviewed the following items mami (where applicable) has been applied. Medications: Current Medications Medications (Trade) Dose Ordered Sig/Jailyn Route PRN Reason Start Time Stop Time Status Last Admin Dose Admin Aspirin (Ecotrin) 81 mg DAILY PO 04/17/21 09:00 04/17/21 09:15 Metoprolol Succinate (Toprol Xl) 12.5 mg DAILY PO 04/17/21 09:00 04/17/21 09:15 Budesonide (Pulmicort) 0.5 mg RTBID NEB 04/17/21 08:00 04/17/21 08:14 Albuterol/ Ipratropium (Duoneb) 3 ml RTQID NEB 04/17/21 08:00 04/17/21 12:05 Justifications for Admission Other Justification INDY ALEJANDRE MD Apr 17, 2021 16:24
[2021-04-17 19:00] VITALS: BP 95/54
--- NOTE | 2021-04-17 19:14 | CONS ---
DATE OF CONSULTATION: 04/17/2021 ATTENDING PHYSICIAN: Megan Esteves DO HISTORY OF PRESENT ILLNESS: The patient is a 80-year-old with a history of lung cancer, was diagnosed with new pulmonary nodule and underwent fine needle aspiration. Status post intervention, there was a pneumothorax. She was admitted. She has a chest tube in place. I was asked to manage her chest tube. The patient currently denies any increasing shortness of breath. She had an x-ray, which revealed increased subcutaneous emphysema in the right chest wall. There is a small right apical pneumothorax. PAST MEDICAL HISTORY: COPD, lung cancer on the left, status post radiation. She has a history of hypertension, allergic rhinitis, hyperlipidemia. ALLERGIES: SULFA AND CIPROFLOXACIN. FAMILY HISTORY: Diabetes. SOCIAL HISTORY: She continues to smoke. REVIEW OF SYSTEMS: As indicated above, otherwise a 10-point system was reviewed and negative. PHYSICAL EXAMINATION: VITAL SIGNS: Stable. O2 saturation greater than 92%, currently on 2 liters. There is no subcutaneous emphysema. CHEST: Full expansion. LUNGS: Crackles on the right. No wheezes. CARDIOVASCULAR: Regular rate and rhythm with S1, S2, no S3. ABDOMEN: Soft, nontender. EXTREMITIES: No clubbing, cyanosis or edema. NEUROLOGIC: The patient was awake, alert, following commands. A detailed neuro exam was not performed. Chest x-ray and labs were reviewed. IMPRESSION: Pneumothorax, status post fine needle aspiration of a right-sided pulmonary nodule, expected in up to 20% of the cases. PLAN: 1. We will continue chest tube placement. The patient does have an air leak today. Chest x-ray revealed increasing subcutaneous emphysema. We will continue to maintain chest tube on wall suction. 2. Nebulized treatments for underlying COPD. 3. Tobacco dependence, patient instructed on the importance of discontinuing tobacco. I do appreciate the privilege in sharing in the this patient's care. LOVE DR: Bria TID: [id number]
[2021-04-17] MEDS: ATORVASTATIN CALCIUM 10 MG TABLET. PO SCH (22:12)
[2021-04-17 23:00] VITALS: BP 92/48
[2021-04-18 03:00] VITALS: BP 126/68
[2021-04-18 06:48] LABS: BASO % 0 % (0-3); EOS # 0.1 x10^3/uL (0.0-0.7); EOS % 1 % (0-3); HEMATOCRIT 44.2 % (36.0-47.0); HEMOGLOBIN 14.6 g/dL (12.0-15.5); LYMPH # 1.1 x10^3/uL (1.0-4.8); LYMPH % 15 % (24-48); MEAN CORPUSCULAR HEMOGLOBIN 30 pg (25-35); MEAN CORPUSCULAR HGB CONC 33 g/dL (31-37); MEAN CORPUSCULAR VOLUME 91 fL (79-100); MONO # 0.4 x10^3/uL (0.0-1.1); MONO % 5 % (0-9); NEUT # 5.9 x10^3/uL (1.8-7.7); NEUT % 78 % (31-73); PLATELET COUNT 185 x10^3/uL (140-400); RED BLOOD COUNT 4.85 x10^6/uL (3.50-5.40); RED CELL DISTRIBUTION WIDTH 14.1 % (11.5-14.5); WHITE BLOOD COUNT 7.6 x10^3/uL (4.0-11.0)
[2021-04-18 07:00] VITALS: BP 98/53
[2021-04-18 07:00] LABS: CALCIUM 9.4 mg/dL (8.5-10.1); CREATININE 0.8 mg/dL (0.6-1.0); GFR 69.4; POTASSIUM 5.7 mmol/L (3.5-5.1)
[2021-04-18] MEDS: BUDESONIDE 0.5 MG/2 ML NEBU. NEB SCH ×2 (07:01→19:53)
[2021-04-18] MEDS: IPRATRPIUM/ALBUTEROL 0.5/2.5MG 3 ML NEBU. NEB SCH ×4 (07:01→19:53)
[2021-04-18] MEDS: METOPROLOL SUCC 24HR ER 25 MG TAB.ER.24H. PO SCH (08:50)
[2021-04-18] MEDS: ASPIRIN ENTERIC COATED 81 MG TABLET.DR. PO SCH (08:50)
[2021-04-18] MEDS: FLUTICASONE 50MCG/NASAL SPRAY 16GM BOTTLE. NS SCH (08:50)
--- NOTE | 2021-04-18 09:37 | PDOC ---
PULMONARY PROGRESS NOTES DATE: 04/18/21 TIME: 09:37 Subjective Patient feels better, not more short of air Vitals Vital Signs Date Time Temp Pulse Resp B/P (MAP) Pulse Ox O2 Delivery O2 Flow Rate FiO2 04/18/21 08:50 70 98/53 04/18/21 08:30 Room Air 04/18/21 07:01 96 2.0 04/18/21 07:00 97.7 16 97.7 ROS: No Nausea, No Chest Pain, No Abdominal Pain, No Increase Cough General: Alert Lungs: Crackles Cardiovascular: S1, S2 Abdomen: Soft Neuro Exam: Alert Extremities: No Edema Skin: Warm Labs Laboratory Tests Test 04/16/21 09:40 04/17/21 06:35 04/18/21 06:30 White Blood Count 7.8 x10^3/uL (4.0-11.0) 8.0 x10^3/uL (4.0-11.0) 7.6 x10^3/uL (4.0-11.0) Red Blood Count 5.13 x10^6/uL (3.50-5.40) 5.06 x10^6/uL (3.50-5.40) 4.85 x10^6/uL (3.50-5.40) Hemoglobin 15.6 g/dL (12.0-15.5) 15.1 g/dL (12.0-15.5) 14.6 g/dL (12.0-15.5) Hematocrit 46.0 % (36.0-47.0) 46.1 % (36.0-47.0) 44.2 % (36.0-47.0) Mean Corpuscular Volume 90 fL (79-100) 91 fL (79-100) 91 fL (79-100) Mean Corpuscular Hemoglobin 30 pg (25-35) 30 pg (25-35) 30 pg (25-35) Mean Corpuscular Hemoglobin Concent 34 g/dL (31-37) 33 g/dL (31-37) 33 g/dL (31-37) Red Cell Distribution Width 14.0 % (11.5-14.5) 14.1 % (11.5-14.5) 14.1 % (11.5-14.5) Platelet Count 208 x10^3/uL (140-400) 197 x10^3/uL (140-400) 185 x10^3/uL (140-400) Neutrophils (%) (Auto) 71 % (31-73) 67 % (31-73) 78 % (31-73) Lymphocytes (%) (Auto) 18 % (24-48) 24 % (24-48) 15 % (24-48) Monocytes (%) (Auto) 7 % (0-9) 7 % (0-9) 5 % (0-9) Eosinophils (%) (Auto) 3 % (0-3) 2 % (0-3) 1 % (0-3) Basophils (%) (Auto) 1 % (0-3) 1 % (0-3) 0 % (0-3) Neutrophils # (Auto) 5.6 x10^3/uL (1.8-7.7) 5.4 x10^3/uL (1.8-7.7) 5.9 x10^3/uL (1.8-7.7) Lymphocytes # (Auto) 1.4 x10^3/uL (1.0-4.8) 1.9 x10^3/uL (1.0-4.8) 1.1 x10^3/uL (1.0-4.8) Monocytes # (Auto) 0.5 x10^3/uL (0.0-1.1) 0.5 x10^3/uL (0.0-1.1) 0.4 x10^3/uL (0.0-1.1) Eosinophils # (Auto) 0.2 x10^3/uL (0.0-0.7) 0.1 x10^3/uL (0.0-0.7) 0.1 x10^3/uL (0.0-0.7) Basophils # (Auto) 0.1 x10^3/uL (0.0-0.2) 0.1 x10^3/uL (0.0-0.2) 0.0 x10^3/uL (0.0-0.2) Prothrombin Time 13.0 SEC (11.7-14.0) Prothromb Time International Ratio 1.0 (0.8-1.1) Sodium Level 142 mmol/L (136-145) 144 mmol/L (136-145) Potassium Level 4.9 mmol/L (3.5-5.1) 5.7 mmol/L (3.5-5.1) Chloride Level 107 mmol/L (98-107) 108 mmol/L (98-107) Carbon Dioxide Level 31 mmol/L (21-32) 34 mmol/L (21-32) Anion Gap 4 (6-14) 2 (6-14) Blood Urea Nitrogen 8 mg/dL (7-20) 10 mg/dL (7-20) Creatinine 0.8 mg/dL (0.6-1.0) 0.8 mg/dL (0.6-1.0) Estimated GFR (Cockcroft-Gault) 69.4 69.4 Glucose Level 96 mg/dL (70-99) 100 mg/dL (70-99) Calcium Level 9.1 mg/dL (8.5-10.1) 9.4 mg/dL (8.5-10.1) Laboratory Tests Test 04/18/21 06:30 White Blood Count 7.6 x10^3/uL (4.0-11.0) Red Blood Count 4.85 x10^6/uL (3.50-5.40) Hemoglobin 14.6 g/dL (12.0-15.5) Hematocrit 44.2 % (36.0-47.0) Mean Corpuscular Volume 91 fL (79-100) Mean Corpuscular Hemoglobin 30 pg (25-35) Mean Corpuscular Hemoglobin Concent 33 g/dL (31-37) Red Cell Distribution Width 14.1 % (11.5-14.5) Platelet Count 185 x10^3/uL (140-400) Neutrophils (%) (Auto) 78 % (31-73) Lymphocytes (%) (Auto) 15 % (24-48) Monocytes (%) (Auto) 5 % (0-9) Eosinophils (%) (Auto) 1 % (0-3) Basophils (%) (Auto) 0 % (0-3) Neutrophils # (Auto) 5.9 x10^3/uL (1.8-7.7) Lymphocytes # (Auto) 1.1 x10^3/uL (1.0-4.8) Monocytes # (Auto) 0.4 x10^3/uL (0.0-1.1) Eosinophils # (Auto) 0.1 x10^3/uL (0.0-0.7) Basophils # (Auto) 0.0 x10^3/uL (0.0-0.2) Sodium Level 144 mmol/L (136-145) Potassium Level 5.7 mmol/L (3.5-5.1) Chloride Level 108 mmol/L (98-107) Carbon Dioxide Level 34 mmol/L (21-32) Anion Gap 2 (6-14) Blood Urea Nitrogen 10 mg/dL (7-20) Creatinine 0.8 mg/dL (0.6-1.0) Estimated GFR (Cockcroft-Gault) 69.4 Glucose Level 100 mg/dL (70-99) Calcium Level 9.4 mg/dL (8.5-10.1) Medications Active Scripts Medications Dose Route/Sig Max Daily Dose Days Date Category Pravastatin Sodium 10 Mg Tablet 10 Mg PO DAILY 10/08/20 Reported Tramadol Hcl 50 Mg Tablet 50 Mg PO Q6HRS PRN 10/08/20 Reported Fluticasone Propionate Nasal [place] (Fluticasone Propionate) 16 Gm Story.susp 2 Story NS DAILY 09/02/18 Reported Anoro Ellipta 62.5-25 Mcg Inh (Umeclidinium Brm/Vilanterol Tr) 1 Each Disk.w.dev 1 Each IH DAILY 09/02/18 Reported Proair Hfa Inhaler (Albuterol Sulfate) 8.5 Gm Hfa.aer.ad 1 Puff INH PRN Q6HRS PRN 09/02/18 Reported Toprol Xl (Metoprolol Succinate) 25 Mg Tab.er.24h 12.5 Mg PO DAILY 09/02/18 Reported Aspir-Low (Aspirin) 81 Mg Tablet. 81 Mg PO DAILY 09/02/18 Reported Impression . IMPRESSION: Pneumothorax, status post fine needle aspiration of a right-sided pulmonary nodule, expected in up to 20% of the cases. 2. History of lung cancer 3. Tobacco dependent 4. COPD Plan . Updated 04/18 Chest x-ray reviewed right apical pneumothorax has improved Patient continued a leak Continue wall suction Discussed with Dr. Montoya Pathology pending PLAN: 1. We will continue chest tube placement. The patient does have an air leak today. Chest x-ray revealed increasing subcutaneous emphysema. We will continue to maintain chest tube on wall suction. 2. Nebulized treatments for underlying COPD. 3. Tobacco dependence, patient instructed on the importance of discontinuing tobacco. I do appreciate the privilege in sharing in the this patient's care. MARSHALL PAYNE MD Apr 18, 2021 09:37
[2021-04-18 11:00] VITALS: BP 97/58
--- NOTE | 2021-04-18 14:32 | PDOC ---
[employer] PROGRESS NOTE Date of Service DOS: DATE: 04/18/21 TIME: 14:30 Chief Complaint Chief Complaint Pneumothorax after lung biopsy History of Present Illness History of Present Illness The patient is a pleasant elderly female who has known lung cancer. She actually has undergone radiation therapy and I think chemotherapy. Things have been going well, but she now has developed a new left lung nodule. The patient was sent in to Dr. Parson of the Interventional Radiology department to do a biopsy of the lung nodule. Postprocedure, she had a small pneumothorax. Dr. Parson called me and explained the situation. We have decided to admit the patient. We placed a chest tube. We are consulting Pulmonary Medicine. 04/17 Patient evaluated at bedside, she was resting when evaluated. Chest tube is still in place. Chest x-ray x-ray shows mild worsening of pneumo. Pulmonary consulted evaluating. 04/18/2021 No acute events overnight. Patient's chest tube does not have any air leak today. We will continue on suction. Repeat chest x-ray daily and as needed. Will defer to pulmonology as they are also following and managing chest tube. We will plan on discharge once chest tube has been discontinued and repeat chest x-ray shows no more pneumothorax. Patient's chart, labs, images were reviewed and discussed with RN Vitals/I&O Vitals/I&O: Vital Signs Date Time Temp Pulse Resp B/P (MAP) Pulse Ox O2 Delivery O2 Flow Rate FiO2 04/18/21 11:51 95 Room Air 04/18/21 11:00 98.2 51 16 97/58 (71) 2.0 98.2 I & O 04/17/21 04/17/21 04/18/21 15:00 23:00 07:00 Intake Total 400 ml 200 ml Output Total 23 ml Balance 400 ml 200 ml -23 ml Physical Exam General: Alert, Oriented X3, Cooperative Heart: Regular rate Lungs: Other (Chest tube in place to the right side) Abdomen: Normal bowel sounds, Soft Extremities: No edema, Normal pulses Skin: No significant lesion Labs Labs: Laboratory Tests Test 04/18/21 06:30 White Blood Count 7.6 x10^3/uL (4.0-11.0) Red Blood Count 4.85 x10^6/uL (3.50-5.40) Hemoglobin 14.6 g/dL (12.0-15.5) Hematocrit 44.2 % (36.0-47.0) Mean Corpuscular Volume 91 fL (79-100) Mean Corpuscular Hemoglobin 30 pg (25-35) Mean Corpuscular Hemoglobin Concent 33 g/dL (31-37) Red Cell Distribution Width 14.1 % (11.5-14.5) Platelet Count 185 x10^3/uL (140-400) Neutrophils (%) (Auto) 78 % (31-73) Lymphocytes (%) (Auto) 15 % (24-48) Monocytes (%) (Auto) 5 % (0-9) Eosinophils (%) (Auto) 1 % (0-3) Basophils (%) (Auto) 0 % (0-3) Neutrophils # (Auto) 5.9 x10^3/uL (1.8-7.7) Lymphocytes # (Auto) 1.1 x10^3/uL (1.0-4.8) Monocytes # (Auto) 0.4 x10^3/uL (0.0-1.1) Eosinophils # (Auto) 0.1 x10^3/uL (0.0-0.7) Basophils # (Auto) 0.0 x10^3/uL (0.0-0.2) Sodium Level 144 mmol/L (136-145) Potassium Level 5.7 mmol/L (3.5-5.1) Chloride Level 108 mmol/L (98-107) Carbon Dioxide Level 34 mmol/L (21-32) Anion Gap 2 (6-14) Blood Urea Nitrogen 10 mg/dL (7-20) Creatinine 0.8 mg/dL (0.6-1.0) Estimated GFR (Cockcroft-Gault) 69.4 Glucose Level 100 mg/dL (70-99) Calcium Level 9.4 mg/dL (8.5-10.1) Comment Review of Relevant I have reviewed the following items mami (where applicable) has been applied. Justifications for Admission Other Justification JOSE LUIS JOHNSON MD Apr 18, 2021 14:32
[2021-04-18 15:00] VITALS: BP 92/58
--- NOTE | 2021-04-18 15:36 | RAD ---
EXAM: XR CHEST 1V 04/18/2021 1:21 PM CLINICAL INDICATION: Pneumothorax COMPARISON: Chest radiograph 04/17/2021 TECHNIQUE: AP upright view of the chest FINDINGS: The right pigtail pleural catheter is unchanged. The small right apical pneumothorax has d ecreased in size. There are mild opacities at the right lung base. No pleural effusion. The heart is normal in size. Unchanged subcutaneous emphysema in the right chest wall. IMPRESSION: 1. Decreased small right apical pneumothorax. 2. Mild right basilar opacities. Electronically signed by: nAn Peterson MD (04/18/2021 3:34 PM) [id number]
--- NOTE | 2021-04-18 17:08 | PATHOLOGY ---
[facility] Accession Number: [id number] . 01 Material submitted: . lung - RT LUNG MASS CORE BIOPSY. Modifiers: right . 02 Diagnosis: Lung tissue, right lung mass needle biopsy: - SQUAMOUS CELL CARCINOMA, MODERATELY TO POORLY DIFFERENTIATED. SEE COMMENT. . (JPM:[facility]; 04/18/2021) . P 04/18/2021 0910 Local . 02 Comment: Sections of the right lung mass needle biopsy reveal segments of lung parenchyma showing extensive areas of replacement by a malignant epithelial neoplasm. The latter consists of variably sized, solid irregular nests of malignant cells which infiltrate an inflamed desmoplastic stroma. The tumor cells have ample amounts of eosinophilic cytoplasm with focally well demarcated cell borders. The malignant cells possess enlarged, rounded to ovoid hyperchromatic nuclei focally containing prominent nucleoli. There is moderate to focal marked nuclear pleomorphism. Mitotic figures are present. There is no evidence of glandular differentiation. The adjacent lung parenchyma shows focal interstitial chronic inflammation. A properly controlled panel of immunoperoxidase stains is obtained on A1 and yields the following results: Cytokeratin 7: Tumor cells negative; pneumocytes positive Cytokeratin 20: Tumor cells negative P40: Tumor cells positive P63: Tumor cells positive CK5/6: Tumor cells positive TTF-1: Tumor cells negative; pneumocytes positive . The morphologic and immunophenotypic findings are supportive of the diagnosis of a moderately to poorly differentiated squamous cell carcinoma. The case is also examined by Dr. Romeo, who concurs with the diagnosis. The results are reported to Dr. Parson on 04/17/2021. . . (JPM:[facility]; 04/18/2021) . Special stains performed: Immunoperoxidase stains for CK7, CK20, p40, p63, TTF-1 and CK5/6 on A1 . 02 Electronically signed: . Leandro Gordon MD, Pathologist NPI- [id number] . 01 Gross description: . The specimen is received in formalin, labeled "Meera Sampson, right lung mass". The source is additionally listed on the requisition as "right lung mass core biopsy". Received are 2 needle cores of pale rabago tissue ranging in length from 0.6 to 0.7 cm by 0.1 cm in diameter. The specimen is submitted entirely in A1-A2. ([facility]; 04/16/2021) NRI/NRI 04/16/2021 1501 Local . 02 Pathologist provided ICD-10: C34.91 . 02 CPT . 389374, [id number], V01022 Specimen Comment: A courtesy copy of this report has been sent to [phone], [phone] Specimen Comment: [id number], Specimen Comment: Report sent to , DR CRUZ / DR LOPEZ Performed at: 01 [facility] [address], [place] [id number] MD Kobe Romeo MD Phone: [phone] Performed at: 02 [facility] [address] [place], [place] [id number] MD Leandro Gordon MD Phone: [phone]
[2021-04-18 19:00] VITALS: BP 106/56
[2021-04-18] MEDS: ATORVASTATIN CALCIUM 10 MG TABLET. PO SCH (20:58)
[2021-04-18 23:00] VITALS: BP 111/55
[2021-04-19 03:00] VITALS: BP 103/66
[2021-04-19] MEDS: BUDESONIDE 0.5 MG/2 ML NEBU. NEB SCH ×2 (06:24→18:44)
[2021-04-19] MEDS: IPRATRPIUM/ALBUTEROL 0.5/2.5MG 3 ML NEBU. NEB SCH ×4 (06:25→18:44)
[2021-04-19 07:00] VITALS: BP 112/62
[2021-04-19 07:51] LABS: CALCIUM 9.4 mg/dL (8.5-10.1); CREATININE 0.9 mg/dL (0.6-1.0); GFR 60.6; POTASSIUM 4.7 mmol/L (3.5-5.1)
[2021-04-19 07:55] LABS: BASO % 0 % (0-3); EOS # 0.1 x10^3/uL (0.0-0.7); EOS % 2 % (0-3); HEMATOCRIT 44.7 % (36.0-47.0); HEMOGLOBIN 14.8 g/dL (12.0-15.5); LYMPH % 18 % (24-48); MEAN CORPUSCULAR HEMOGLOBIN 30 pg (25-35); MEAN CORPUSCULAR HGB CONC 33 g/dL (31-37); MEAN CORPUSCULAR VOLUME 91 fL (79-100); MONO # 0.3 x10^3/uL (0.0-1.1); MONO % 4 % (0-9); NEUT # 4.5 x10^3/uL (1.8-7.7); NEUT % 76 % (31-73); PLATELET COUNT 191 x10^3/uL (140-400); RED BLOOD COUNT 4.93 x10^6/uL (3.50-5.40); RED CELL DISTRIBUTION WIDTH 13.8 % (11.5-14.5); WHITE BLOOD COUNT 5.9 x10^3/uL (4.0-11.0)
[2021-04-19] MEDS: ASPIRIN ENTERIC COATED 81 MG TABLET.DR. PO SCH (08:50)
[2021-04-19] MEDS: METOPROLOL SUCC 24HR ER 25 MG TAB.ER.24H. PO SCH (08:50)
[2021-04-19] MEDS: FLUTICASONE 50MCG/NASAL SPRAY 16GM BOTTLE. NS SCH (08:51)
--- NOTE | 2021-04-19 10:27 | PDOC ---
PULMONARY PROGRESS NOTES DATE: 04/19/21 TIME: 10:25 Subjective Patient feels better, not more short of air Vitals Vital Signs Date Time Temp Pulse Resp B/P (MAP) Pulse Ox O2 Delivery O2 Flow Rate FiO2 04/19/21 08:50 86 112/62 04/19/21 07:00 97.5 17 95 Nasal Cannula 2.0 97.5 ROS: No Nausea, No Chest Pain, No Abdominal Pain, No Increase Cough General: Alert Lungs: Crackles Cardiovascular: S1, S2 Abdomen: Soft Neuro Exam: Alert Extremities: No Edema Skin: Warm Labs Laboratory Tests Test 04/18/21 06:30 04/19/21 07:25 White Blood Count 7.6 x10^3/uL (4.0-11.0) 5.9 x10^3/uL (4.0-11.0) Red Blood Count 4.85 x10^6/uL (3.50-5.40) 4.93 x10^6/uL (3.50-5.40) Hemoglobin 14.6 g/dL (12.0-15.5) 14.8 g/dL (12.0-15.5) Hematocrit 44.2 % (36.0-47.0) 44.7 % (36.0-47.0) Mean Corpuscular Volume 91 fL (79-100) 91 fL (79-100) Mean Corpuscular Hemoglobin 30 pg (25-35) 30 pg (25-35) Mean Corpuscular Hemoglobin Concent 33 g/dL (31-37) 33 g/dL (31-37) Red Cell Distribution Width 14.1 % (11.5-14.5) 13.8 % (11.5-14.5) Platelet Count 185 x10^3/uL (140-400) 191 x10^3/uL (140-400) Neutrophils (%) (Auto) 78 % (31-73) 76 % (31-73) Lymphocytes (%) (Auto) 15 % (24-48) 18 % (24-48) Monocytes (%) (Auto) 5 % (0-9) 4 % (0-9) Eosinophils (%) (Auto) 1 % (0-3) 2 % (0-3) Basophils (%) (Auto) 0 % (0-3) 0 % (0-3) Neutrophils # (Auto) 5.9 x10^3/uL (1.8-7.7) 4.5 x10^3/uL (1.8-7.7) Lymphocytes # (Auto) 1.1 x10^3/uL (1.0-4.8) 1.0 x10^3/uL (1.0-4.8) Monocytes # (Auto) 0.4 x10^3/uL (0.0-1.1) 0.3 x10^3/uL (0.0-1.1) Eosinophils # (Auto) 0.1 x10^3/uL (0.0-0.7) 0.1 x10^3/uL (0.0-0.7) Basophils # (Auto) 0.0 x10^3/uL (0.0-0.2) 0.0 x10^3/uL (0.0-0.2) Sodium Level 144 mmol/L (136-145) 142 mmol/L (136-145) Potassium Level 5.7 mmol/L (3.5-5.1) 4.7 mmol/L (3.5-5.1) Chloride Level 108 mmol/L (98-107) 106 mmol/L (98-107) Carbon Dioxide Level 34 mmol/L (21-32) 30 mmol/L (21-32) Anion Gap 2 (6-14) 6 (6-14) Blood Urea Nitrogen 10 mg/dL (7-20) 12 mg/dL (7-20) Creatinine 0.8 mg/dL (0.6-1.0) 0.9 mg/dL (0.6-1.0) Estimated GFR (Cockcroft-Gault) 69.4 60.6 Glucose Level 100 mg/dL (70-99) 155 mg/dL (70-99) Calcium Level 9.4 mg/dL (8.5-10.1) 9.4 mg/dL (8.5-10.1) Laboratory Tests Test 04/19/21 07:25 White Blood Count 5.9 x10^3/uL (4.0-11.0) Red Blood Count 4.93 x10^6/uL (3.50-5.40) Hemoglobin 14.8 g/dL (12.0-15.5) Hematocrit 44.7 % (36.0-47.0) Mean Corpuscular Volume 91 fL (79-100) Mean Corpuscular Hemoglobin 30 pg (25-35) Mean Corpuscular Hemoglobin Concent 33 g/dL (31-37) Red Cell Distribution Width 13.8 % (11.5-14.5) Platelet Count 191 x10^3/uL (140-400) Neutrophils (%) (Auto) 76 % (31-73) Lymphocytes (%) (Auto) 18 % (24-48) Monocytes (%) (Auto) 4 % (0-9) Eosinophils (%) (Auto) 2 % (0-3) Basophils (%) (Auto) 0 % (0-3) Neutrophils # (Auto) 4.5 x10^3/uL (1.8-7.7) Lymphocytes # (Auto) 1.0 x10^3/uL (1.0-4.8) Monocytes # (Auto) 0.3 x10^3/uL (0.0-1.1) Eosinophils # (Auto) 0.1 x10^3/uL (0.0-0.7) Basophils # (Auto) 0.0 x10^3/uL (0.0-0.2) Sodium Level 142 mmol/L (136-145) Potassium Level 4.7 mmol/L (3.5-5.1) Chloride Level 106 mmol/L (98-107) Carbon Dioxide Level 30 mmol/L (21-32) Anion Gap 6 (6-14) Blood Urea Nitrogen 12 mg/dL (7-20) Creatinine 0.9 mg/dL (0.6-1.0) Estimated GFR (Cockcroft-Gault) 60.6 Glucose Level 155 mg/dL (70-99) Calcium Level 9.4 mg/dL (8.5-10.1) Medications Active Scripts Medications Dose Route/Sig Max Daily Dose Days Date Category Pravastatin Sodium 10 Mg Tablet 10 Mg PO DAILY 10/08/20 Reported Tramadol Hcl 50 Mg Tablet 50 Mg PO Q6HRS PRN 10/08/20 Reported Fluticasone Propionate Nasal [place] (Fluticasone Propionate) 16 Gm [place].susp 2 [place] NS DAILY 09/02/18 Reported Anoro Ellipta 62.5-25 Mcg Inh (Umeclidinium Brm/Vilanterol Tr) 1 Each Disk.w.dev 1 Each IH DAILY 09/02/18 Reported Proair Hfa Inhaler (Albuterol Sulfate) 8.5 Gm Hfa.aer.ad 1 Puff INH PRN Q6HRS PRN 09/02/18 Reported Toprol Xl (Metoprolol Succinate) 25 Mg Tab.er.24h 12.5 Mg PO DAILY 09/02/18 Reported Aspir-Low (Aspirin) 81 Mg Tablet.dr 81 Mg PO DAILY 09/02/18 Reported Comments Chest x-ray reviewed 04/19/2021. Slight increase in right upper lobe pneumothorax, still about 10 to 15%. Unchanged subcu air Impression . IMPRESSION: Pneumothorax, status post fine needle aspiration of a right-sided pulmonary nodule, expected in up to 20% of the cases. 2. History of lung cancer 3. Tobacco dependent 4. COPD Plan . Chest x-ray reviewed right apical pneumothorax essentially unchanged or slightly increased. Still about 10 to 15%. Patient patient with persistent air leak. Continue wall suction Discussed with the patient that at this point we will continue to keep the chest tube to suction. Follow daily x-rays Pathology consistent with squamous cell lung carcinoma EFREN THOMPSON MD Apr 19, 2021 10:27
[2021-04-19 11:00] VITALS: BP 113/65
--- NOTE | 2021-04-19 11:35 | PDOC ---
[employer] PROGRESS NOTE Date of Service DOS: DATE: 04/19/21 TIME: 11:29 Chief Complaint Chief Complaint Squamous cell lung CA found on pathology Right apical pneumothorax after lung biopsy Tobacco misuse COPD Continue chest tube to wall suction Follow chest x-rays daily History of Present Illness History of Present Illness The patient is a pleasant elderly female who has known lung cancer. She actually has undergone radiation therapy and I think chemotherapy. Things have been going well, but she now has developed a new left lung nodule. The patient was sent in to Dr. Parson of the Interventional Radiology department to do a biopsy of the lung nodule. Postprocedure, she had a small pneumothorax. Dr. Parson called me and explained the situation. We have decided to admit the patient. We placed a chest tube. We are consulting Pulmonary Medicine. 04/17 Patient evaluated at bedside, she was resting when evaluated. Chest tube is still in place. Chest x-ray x-ray shows mild worsening of pneumo. Pulmonary consulted evaluating. 04/18/2021 No acute events overnight. Patient's chest tube does not have any air leak today. We will continue on suction. Repeat chest x-ray daily and as needed. Will defer to pulmonology as they are also following and managing chest tube. We will plan on discharge once chest tube has been discontinued and repeat chest x-ray shows no more pneumothorax. Patient's chart, labs, images were reviewed and discussed with RN 04/19/2021 No acute events overnight. Patient saturating well on 96% on room air. Decreased in her apical pneumothorax seen on chest x-ray. Patient's chart, labs, images were reviewed and discussed with RN Vitals/I&O Vitals/I&O: Vital Signs Date Time Temp Pulse Resp B/P (MAP) Pulse Ox O2 Delivery O2 Flow Rate FiO2 04/19/21 11:00 97.8 82 18 113/65 (81) 97 Nasal Cannula 2.0 97.8 I & O 04/18/21 04/18/21 04/19/21 15:00 23:00 07:00 Intake Total 360 ml Balance 360 ml Physical Exam General: Alert, Oriented X3, Cooperative Heart: Regular rate Lungs: Crackles Abdomen: Normal bowel sounds, Soft Extremities: No edema, Normal pulses Skin: No significant lesion Labs Labs: Laboratory Tests Test 04/19/21 07:25 White Blood Count 5.9 x10^3/uL (4.0-11.0) Red Blood Count 4.93 x10^6/uL (3.50-5.40) Hemoglobin 14.8 g/dL (12.0-15.5) Hematocrit 44.7 % (36.0-47.0) Mean Corpuscular Volume 91 fL (79-100) Mean Corpuscular Hemoglobin 30 pg (25-35) Mean Corpuscular Hemoglobin Concent 33 g/dL (31-37) Red Cell Distribution Width 13.8 % (11.5-14.5) Platelet Count 191 x10^3/uL (140-400) Neutrophils (%) (Auto) 76 % (31-73) Lymphocytes (%) (Auto) 18 % (24-48) Monocytes (%) (Auto) 4 % (0-9) Eosinophils (%) (Auto) 2 % (0-3) Basophils (%) (Auto) 0 % (0-3) Neutrophils # (Auto) 4.5 x10^3/uL (1.8-7.7) Lymphocytes # (Auto) 1.0 x10^3/uL (1.0-4.8) Monocytes # (Auto) 0.3 x10^3/uL (0.0-1.1) Eosinophils # (Auto) 0.1 x10^3/uL (0.0-0.7) Basophils # (Auto) 0.0 x10^3/uL (0.0-0.2) Sodium Level 142 mmol/L (136-145) Potassium Level 4.7 mmol/L (3.5-5.1) Chloride Level 106 mmol/L (98-107) Carbon Dioxide Level 30 mmol/L (21-32) Anion Gap 6 (6-14) Blood Urea Nitrogen 12 mg/dL (7-20) Creatinine 0.9 mg/dL (0.6-1.0) Estimated GFR (Cockcroft-Gault) 60.6 Glucose Level 155 mg/dL (70-99) Calcium Level 9.4 mg/dL (8.5-10.1) Comment Review of Relevant I have reviewed the following items mami (where applicable) has been applied. Justifications for Admission Other Justification JOSE LUIS JOHNSON MD Apr 19, 2021 11:35
--- NOTE | 2021-04-19 11:39 | NUR ---
SW following. Discussed with RN, pt from home alone, room air, cardiac diet. Therapy recommending home. Pt still has chest tube, and likely for a couple more days. No discharge needs at this time. SW will continue to follow.
--- NOTE | 2021-04-19 12:58 | RAD ---
EXAM: XR CHEST 1V 04/19/2021 8:34 AM CLINICAL INDICATION: Pneumothorax COMPARISON: 04/18/2021 TECHNIQUE: AP upright view of the chest FINDINGS: The right pigtail pleural catheter is unchanged. Minimally increased size of small right a pical pneumothorax. No pleural effusion. Mild bibasilar opacities are unchanged. There are unchanged nodular opacities in the apices. The cardiac silhouette is stable. Unchanged subcutaneous emphysema i n the right chest wall. IMPRESSION: Minimally increased small right apical pneumothorax with pleural drain in place. Electronically signed by: Ann Peterson MD (04/19/2021 12:55 PM) [id number]
[2021-04-19 15:00] VITALS: BP 100/62
[2021-04-19 19:00] VITALS: BP 114/67
[2021-04-19] MEDS: ATORVASTATIN CALCIUM 10 MG TABLET. PO SCH (20:31)
[2021-04-20 03:00] VITALS: BP 99/70
[2021-04-20 07:00] VITALS: BP 118/66
[2021-04-20 07:04] LABS: BASO % 0 % (0-3); EOS # 0.2 x10^3/uL (0.0-0.7); EOS % 3 % (0-3); HEMOGLOBIN 15.5 g/dL (12.0-15.5); LYMPH # 1.2 x10^3/uL (1.0-4.8); LYMPH % 22 % (24-48); MEAN CORPUSCULAR HEMOGLOBIN 31 pg (25-35); MEAN CORPUSCULAR HGB CONC 34 g/dL (31-37); MEAN CORPUSCULAR VOLUME 91 fL (79-100); MONO # 0.4 x10^3/uL (0.0-1.1); MONO % 7 % (0-9); NEUT # 3.8 x10^3/uL (1.8-7.7); NEUT % 68 % (31-73); PLATELET COUNT 209 x10^3/uL (140-400); RED BLOOD COUNT 4.97 x10^6/uL (3.50-5.40); RED CELL DISTRIBUTION WIDTH 13.8 % (11.5-14.5); WHITE BLOOD COUNT 5.6 x10^3/uL (4.0-11.0)
[2021-04-20 07:17] LABS: CALCIUM 9.7 mg/dL (8.5-10.1); CREATININE 0.9 mg/dL (0.6-1.0); GFR 60.6
[2021-04-20 07:27] LABS: POTASSIUM 5.7 mmol/L (3.5-5.1)
[2021-04-20] MEDS: BUDESONIDE 0.5 MG/2 ML NEBU. NEB SCH ×2 (07:46→18:15)
[2021-04-20] MEDS: IPRATRPIUM/ALBUTEROL 0.5/2.5MG 3 ML NEBU. NEB SCH ×4 (07:46→18:15)
--- NOTE | 2021-04-20 08:33 | PDOC ---
PULMONARY PROGRESS NOTES DATE: 04/20/21 TIME: 08:32 Subjective Patient feels better, not more short of air Vitals Vital Signs Date Time Temp Pulse Resp B/P (MAP) Pulse Ox O2 Delivery O2 Flow Rate FiO2 04/20/21 07:46 97 Room Air 04/20/21 03:00 98.2 70 18 99/70 (80) 98.2 04/19/21 15:00 2.0 ROS: No Nausea, No Chest Pain, No Abdominal Pain, No Increase Cough General: Alert Lungs: Crackles Cardiovascular: S1, S2 Abdomen: Soft Neuro Exam: Alert Extremities: No Edema Skin: Warm Labs Laboratory Tests Test 04/19/21 07:25 04/20/21 06:30 White Blood Count 5.9 x10^3/uL (4.0-11.0) 5.6 x10^3/uL (4.0-11.0) Red Blood Count 4.93 x10^6/uL (3.50-5.40) 4.97 x10^6/uL (3.50-5.40) Hemoglobin 14.8 g/dL (12.0-15.5) 15.5 g/dL (12.0-15.5) Hematocrit 44.7 % (36.0-47.0) 45.0 % (36.0-47.0) Mean Corpuscular Volume 91 fL (79-100) 91 fL (79-100) Mean Corpuscular Hemoglobin 30 pg (25-35) 31 pg (25-35) Mean Corpuscular Hemoglobin Concent 33 g/dL (31-37) 34 g/dL (31-37) Red Cell Distribution Width 13.8 % (11.5-14.5) 13.8 % (11.5-14.5) Platelet Count 191 x10^3/uL (140-400) 209 x10^3/uL (140-400) Neutrophils (%) (Auto) 76 % (31-73) 68 % (31-73) Lymphocytes (%) (Auto) 18 % (24-48) 22 % (24-48) Monocytes (%) (Auto) 4 % (0-9) 7 % (0-9) Eosinophils (%) (Auto) 2 % (0-3) 3 % (0-3) Basophils (%) (Auto) 0 % (0-3) 0 % (0-3) Neutrophils # (Auto) 4.5 x10^3/uL (1.8-7.7) 3.8 x10^3/uL (1.8-7.7) Lymphocytes # (Auto) 1.0 x10^3/uL (1.0-4.8) 1.2 x10^3/uL (1.0-4.8) Monocytes # (Auto) 0.3 x10^3/uL (0.0-1.1) 0.4 x10^3/uL (0.0-1.1) Eosinophils # (Auto) 0.1 x10^3/uL (0.0-0.7) 0.2 x10^3/uL (0.0-0.7) Basophils # (Auto) 0.0 x10^3/uL (0.0-0.2) 0.0 x10^3/uL (0.0-0.2) Sodium Level 142 mmol/L (136-145) 144 mmol/L (136-145) Potassium Level 4.7 mmol/L (3.5-5.1) 5.7 mmol/L (3.5-5.1) Chloride Level 106 mmol/L (98-107) 109 mmol/L (98-107) Carbon Dioxide Level 30 mmol/L (21-32) 30 mmol/L (21-32) Anion Gap 6 (6-14) 5 (6-14) Blood Urea Nitrogen 12 mg/dL (7-20) 14 mg/dL (7-20) Creatinine 0.9 mg/dL (0.6-1.0) 0.9 mg/dL (0.6-1.0) Estimated GFR (Cockcroft-Gault) 60.6 60.6 Glucose Level 155 mg/dL (70-99) 96 mg/dL (70-99) Calcium Level 9.4 mg/dL (8.5-10.1) 9.7 mg/dL (8.5-10.1) Laboratory Tests Test 04/20/21 06:30 White Blood Count 5.6 x10^3/uL (4.0-11.0) Red Blood Count 4.97 x10^6/uL (3.50-5.40) Hemoglobin 15.5 g/dL (12.0-15.5) Hematocrit 45.0 % (36.0-47.0) Mean Corpuscular Volume 91 fL (79-100) Mean Corpuscular Hemoglobin 31 pg (25-35) Mean Corpuscular Hemoglobin Concent 34 g/dL (31-37) Red Cell Distribution Width 13.8 % (11.5-14.5) Platelet Count 209 x10^3/uL (140-400) Neutrophils (%) (Auto) 68 % (31-73) Lymphocytes (%) (Auto) 22 % (24-48) Monocytes (%) (Auto) 7 % (0-9) Eosinophils (%) (Auto) 3 % (0-3) Basophils (%) (Auto) 0 % (0-3) Neutrophils # (Auto) 3.8 x10^3/uL (1.8-7.7) Lymphocytes # (Auto) 1.2 x10^3/uL (1.0-4.8) Monocytes # (Auto) 0.4 x10^3/uL (0.0-1.1) Eosinophils # (Auto) 0.2 x10^3/uL (0.0-0.7) Basophils # (Auto) 0.0 x10^3/uL (0.0-0.2) Sodium Level 144 mmol/L (136-145) Potassium Level 5.7 mmol/L (3.5-5.1) Chloride Level 109 mmol/L (98-107) Carbon Dioxide Level 30 mmol/L (21-32) Anion Gap 5 (6-14) Blood Urea Nitrogen 14 mg/dL (7-20) Creatinine 0.9 mg/dL (0.6-1.0) Estimated GFR (Cockcroft-Gault) 60.6 Glucose Level 96 mg/dL (70-99) Calcium Level 9.7 mg/dL (8.5-10.1) Medications Active Scripts Medications Dose Route/Sig Max Daily Dose Days Date Category Pravastatin Sodium 10 Mg Tablet 10 Mg PO DAILY 10/08/20 Reported Tramadol Hcl 50 Mg Tablet 50 Mg PO Q6HRS PRN 10/08/20 Reported Fluticasone Propionate Nasal [place] (Fluticasone Propionate) 16 Gm [place].susp 2 [place] NS DAILY 09/02/18 Reported Anoro Ellipta 62.5-25 Mcg Inh (Umeclidinium Brm/Vilanterol Tr) 1 Each Disk.w.dev 1 Each IH DAILY 09/02/18 Reported Proair Hfa Inhaler (Albuterol Sulfate) 8.5 Gm Hfa.aer.ad 1 Puff INH PRN Q6HRS PRN 09/02/18 Reported Toprol Xl (Metoprolol Succinate) 25 Mg Tab.er.24h 12.5 Mg PO DAILY 09/02/18 Reported Aspir-Low (Aspirin) 81 Mg Tablet.dr 81 Mg PO DAILY 09/02/18 Reported Comments Chest x-ray reviewed 04/20/2021. Mild improvement in right apical pneumothorax. Chest x-ray reviewed 04/19/2021. Slight increase in right upper lobe pneumothorax, still about 10 to 15%. Unchanged subcu air Impression . IMPRESSION: Pneumothorax, status post fine needle aspiration of a right-sided pulmonary nodule, expected in up to 20% of the cases. Persistent air leak and persistent small right apical pneumothorax 2. History of lung cancer 3. Tobacco dependent 4. COPD Plan . Continue with present chest tube to suction. Pneumothorax mildly improved but air leak per is persistent. If pneumothorax persists by middle of next week, we may consider transfer to [facility] for endobronchial valve. Continue wall suction Discussed with the patient that at this point we will continue to keep the chest tube to suction. Follow daily x-rays Pathology consistent with squamous cell lung carcinoma EFREN THOMPSON MD Apr 20, 2021 08:33
--- NOTE | 2021-04-20 08:36 | RAD ---
XR CHEST 1V 7:45 AM CLINICAL INDICATIONS: Pneumothorax follow-up study. COMPARISON: April 19, 2021. FINDINGS/ IMPRESSION: The right apical pneumothorax seen previously has decreased in size now measuring 8 mm fr om the right apical pleural edge as opposed to 20 mm previously. Soft tissue emphysema is again seen within the right lateral chest and the lower right neck. Minimal right-sided pleural effusion is unch anged within the right lateral costophrenic angle. There has been improvement in the interstitial vickie g infiltrate or pulmonary edema on the right side. Left upper lobe lung infiltrate is stable. Heart s ize and mediastinum are stable. Electronically signed by: Aldo Lee MD (04/20/2021 8:34 AM) [id number]
[2021-04-20] MEDS: ASPIRIN ENTERIC COATED 81 MG TABLET.DR. PO SCH (08:46)
[2021-04-20] MEDS: FLUTICASONE 50MCG/NASAL SPRAY 16GM BOTTLE. NS SCH (08:46)
[2021-04-20] MEDS: METOPROLOL SUCC 24HR ER 25 MG TAB.ER.24H. PO SCH (08:46)
[2021-04-20 11:00] VITALS: BP 93/61
--- NOTE | 2021-04-20 11:17 | PDOC ---
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 She actually has undergone radiation therapy and I think chemotherapy. Things have been going well, but she now has developed a new left lung nodule. The patient was sent in to Dr. Parson of the Interventional Radiology department to do a biopsy of the lung nodule. Postprocedure, she had a small pneumothorax. Dr. Parson called me and explained the situation. We have decided to admit the patient. We placed a chest tube. We are consulting Pulmonary Medicine. 04/17 Patient evaluated at bedside, she was resting when evaluated. Chest tube is still in place. Chest x-ray x-ray shows mild worsening of pneumo. Pulmonary consulted evaluating. 04/18/2021 No acute events overnight. Patient's chest tube does not have any air leak today. We will continue on suction. Repeat chest x-ray daily and as needed. Will defer to pulmonology as they are also following and managing chest tube. We will plan on discharge once chest tube has been discontinued and repeat chest x-ray shows no more pneumothorax. Patient's chart, labs, images were reviewed and discussed with RN 04/19/2021 No acute events overnight. Patient saturating well on 96% on room air. Decreased in her apical pneumothorax seen on chest x-ray. Patient's chart, la bs, images were reviewed and discussed with RN 04/20/2021 No acute events overnight. Patient seen and examined bedside. Chest wall to suction with minimal air leak. No dyspnea. Chest x-ray showed decreased and apical pneumothorax from 20 mm to 8 mm. In addition to my E/M visit, advance care planning done with A total time of 20 minutes was spent from 8:00 to 820 face to face in discussion with the patient regarding their goals of care, and explained to her the options for conservative versus surgical management. The more aggressive route would be to do a pleurodesis in order to keep the collapsed lung adhered to the pleural membrane if possible. Mayito out diagram for patient for better understanding. Patient's chart, labs, images were reviewed and discussed with RN Vitals/I&O Vitals/I&O: Vital Signs Date Time Temp Pulse Resp B/P (MAP) Pulse Ox O2 Delivery O2 Flow Rate FiO2 04/20/21 08:46 79 118/66 04/20/21 08:00 Room Air 04/20/21 07:46 97 04/20/21 07:00 97.7 18 97.7 04/19/21 15:00 2.0 I & O 04/19/21 04/19/21 04/20/21 15:00 23:00 07:00 Intake Total 600 ml 120 ml Output Total 14 ml Balance 600 ml -14 ml 120 ml Physical Exam General: Alert, Oriented X3, Cooperative Heart: Regular rate Lungs: Crackles Abdomen: Normal bowel sounds, Soft Extremities: No edema, Normal pulses Skin: No significant lesion Labs Labs: Laboratory Tests Test 04/20/21 06:30 White Blood Count 5.6 x10^3/uL (4.0-11.0) Red Blood Count 4.97 x10^6/uL (3.50-5.40) Hemoglobin 15.5 g/dL (12.0-15.5) Hematocrit 45.0 % (36.0-47.0) Mean Corpuscular Volume 91 fL (79-100) Mean Corpuscular Hemoglobin 31 pg (25-35) Mean Corpuscular Hemoglobin Concent 34 g/dL (31-37) Red Cell Distribution Width 13.8 % (11.5-14.5) Platelet Count 209 x10^3/uL (140-400) Neutrophils (%) (Auto) 68 % (31-73) Lymphocytes (%) (Auto) 22 % (24-48) Monocytes (%) (Auto) 7 % (0-9) Eosinophils (%) (Auto) 3 % (0-3) Basophils (%) (Auto) 0 % (0-3) Neutrophils # (Auto) 3.8 x10^3/uL (1.8-7.7) Lymphocytes # (Auto) 1.2 x10^3/uL (1.0-4.8) Monocytes # (Auto) 0.4 x10^3/uL (0.0-1.1) Eosinophils # (Auto) 0.2 x10^3/uL (0.0-0.7) Basophils # (Auto) 0.0 x10^3/uL (0.0-0.2) Sodium Level 144 mmol/L (136-145) Potassium Level 5.7 mmol/L (3.5-5.1) Chloride Level 109 mmol/L (98-107) Carbon Dioxide Level 30 mmol/L (21-32) Anion Gap 5 (6-14) Blood Urea Nitrogen 14 mg/dL (7-20) Creatinine 0.9 mg/dL (0.6-1.0) Estimated GFR (Cockcroft-Gault) 60.6 Glucose Level 96 mg/dL (70-99) Calcium Level 9.7 mg/dL (8.5-10.1) Comment Review of Relevant I have reviewed the following items mami (where applicable) has been applied. Justifications for Admission Other Justification JOSE LUIS JOHNSON MD Apr 20, 2021 11:17
[2021-04-20 15:00] VITALS: BP 94/52
[2021-04-20 19:00] VITALS: BP 115/65
[2021-04-20] MEDS: ATORVASTATIN CALCIUM 10 MG TABLET. PO SCH (22:01)
[2021-04-20 23:14] VITALS: BP 112/67
[2021-04-21 03:22] VITALS: BP 109/62
[2021-04-21 07:00] VITALS: BP 136/78
[2021-04-21 07:12] LABS: BASO % 0 % (0-3); EOS # 0.2 x10^3/uL (0.0-0.7); EOS % 4 % (0-3); HEMATOCRIT 45.8 % (36.0-47.0); HEMOGLOBIN 15.3 g/dL (12.0-15.5); LYMPH # 1.4 x10^3/uL (1.0-4.8); LYMPH % 23 % (24-48); MEAN CORPUSCULAR HEMOGLOBIN 30 pg (25-35); MEAN CORPUSCULAR HGB CONC 33 g/dL (31-37); MEAN CORPUSCULAR VOLUME 91 fL (79-100); MONO # 0.5 x10^3/uL (0.0-1.1); MONO % 8 % (0-9); NEUT # 3.9 x10^3/uL (1.8-7.7); NEUT % 64 % (31-73); PLATELET COUNT 220 x10^3/uL (140-400); RED BLOOD COUNT 5.05 x10^6/uL (3.50-5.40); WHITE BLOOD COUNT 6.1 x10^3/uL (4.0-11.0)
[2021-04-21 07:26] LABS: CALCIUM 9.5 mg/dL (8.5-10.1); CREATININE 0.9 mg/dL (0.6-1.0); GFR 60.6
[2021-04-21 07:28] LABS: POTASSIUM 5.2 mmol/L (3.5-5.1)
[2021-04-21] MEDS: IPRATRPIUM/ALBUTEROL 0.5/2.5MG 3 ML NEBU. NEB SCH ×4 (08:07→20:19)
[2021-04-21] MEDS: BUDESONIDE 0.5 MG/2 ML NEBU. NEB SCH ×2 (08:07→20:19)
--- NOTE | 2021-04-21 08:25 | RAD ---
PROCEDURE: XR CHEST 1V.04/21/2021 8:21 AM REASON FOR STUDY: Reason: PTX / Spl. Instructions: / History: . COMPARISON: Exam of the previous day. FINDINGS: Right-sided chest tube remains in place. The right side pneumothorax appears decreased if n ot resolved. There may be a tiny residual apical component. There is still some soft tissue air over the right neck and chest. Increased markings are again seen in the upper lungs. No new infiltrate or effusion is evident. Heart size is normal. IMPRESSION: Reduction or resolution of pneumothorax. Electronically signed by: Trip Dawson Jr., MD (04/21/2021 8:22 AM) [id number]
[2021-04-21] MEDS: FLUTICASONE 50MCG/NASAL SPRAY 16GM BOTTLE. NS SCH (09:00)
[2021-04-21] MEDS: METOPROLOL SUCC 24HR ER 25 MG TAB.ER.24H. PO SCH (09:19)
[2021-04-21] MEDS: ASPIRIN ENTERIC COATED 81 MG TABLET.DR. PO SCH (09:19)
--- NOTE | 2021-04-21 10:42 | PDOC ---
PULMONARY PROGRESS NOTES DATE: 04/21/21 TIME: 10:40 Subjective Patient feels better, not more short of air Vitals Vital Signs Date Time Temp Pulse Resp B/P (MAP) Pulse Ox O2 Delivery O2 Flow Rate FiO2 04/21/21 09:19 63 136/78 04/21/21 08:10 99 Room Air 04/21/21 07:00 97.5 18 97.5 ROS: No Nausea, No Chest Pain, No Abdominal Pain, No Increase Cough General: Alert Lungs: Crackles Cardiovascular: S1, S2 Abdomen: Soft Neuro Exam: Alert Extremities: No Edema Skin: Warm Labs Laboratory Tests Test 04/20/21 06:30 04/21/21 06:50 White Blood Count 5.6 x10^3/uL (4.0-11.0) 6.1 x10^3/uL (4.0-11.0) Red Blood Count 4.97 x10^6/uL (3.50-5.40) 5.05 x10^6/uL (3.50-5.40) Hemoglobin 15.5 g/dL (12.0-15.5) 15.3 g/dL (12.0-15.5) Hematocrit 45.0 % (36.0-47.0) 45.8 % (36.0-47.0) Mean Corpuscular Volume 91 fL (79-100) 91 fL (79-100) Mean Corpuscular Hemoglobin 31 pg (25-35) 30 pg (25-35) Mean Corpuscular Hemoglobin Concent 34 g/dL (31-37) 33 g/dL (31-37) Red Cell Distribution Width 13.8 % (11.5-14.5) 14.0 % (11.5-14.5) Platelet Count 209 x10^3/uL (140-400) 220 x10^3/uL (140-400) Neutrophils (%) (Auto) 68 % (31-73) 64 % (31-73) Lymphocytes (%) (Auto) 22 % (24-48) 23 % (24-48) Monocytes (%) (Auto) 7 % (0-9) 8 % (0-9) Eosinophils (%) (Auto) 3 % (0-3) 4 % (0-3) Basophils (%) (Auto) 0 % (0-3) 0 % (0-3) Neutrophils # (Auto) 3.8 x10^3/uL (1.8-7.7) 3.9 x10^3/uL (1.8-7.7) Lymphocytes # (Auto) 1.2 x10^3/uL (1.0-4.8) 1.4 x10^3/uL (1.0-4.8) Monocytes # (Auto) 0.4 x10^3/uL (0.0-1.1) 0.5 x10^3/uL (0.0-1.1) Eosinophils # (Auto) 0.2 x10^3/uL (0.0-0.7) 0.2 x10^3/uL (0.0-0.7) Basophils # (Auto) 0.0 x10^3/uL (0.0-0.2) 0.0 x10^3/uL (0.0-0.2) Sodium Level 144 mmol/L (136-145) 141 mmol/L (136-145) Potassium Level 5.7 mmol/L (3.5-5.1) 5.2 mmol/L (3.5-5.1) Chloride Level 109 mmol/L (98-107) 105 mmol/L (98-107) Carbon Dioxide Level 30 mmol/L (21-32) 30 mmol/L (21-32) Anion Gap 5 (6-14) 6 (6-14) Blood Urea Nitrogen 14 mg/dL (7-20) 14 mg/dL (7-20) Creatinine 0.9 mg/dL (0.6-1.0) 0.9 mg/dL (0.6-1.0) Estimated GFR (Cockcroft-Gault) 60.6 60.6 Glucose Level 96 mg/dL (70-99) 95 mg/dL (70-99) Calcium Level 9.7 mg/dL (8.5-10.1) 9.5 mg/dL (8.5-10.1) Laboratory Tests Test 04/21/21 06:50 White Blood Count 6.1 x10^3/uL (4.0-11.0) Red Blood Count 5.05 x10^6/uL (3.50-5.40) Hemoglobin 15.3 g/dL (12.0-15.5) Hematocrit 45.8 % (36.0-47.0) Mean Corpuscular Volume 91 fL (79-100) Mean Corpuscular Hemoglobin 30 pg (25-35) Mean Corpuscular Hemoglobin Concent 33 g/dL (31-37) Red Cell Distribution Width 14.0 % (11.5-14.5) Platelet Count 220 x10^3/uL (140-400) Neutrophils (%) (Auto) 64 % (31-73) Lymphocytes (%) (Auto) 23 % (24-48) Monocytes (%) (Auto) 8 % (0-9) Eosinophils (%) (Auto) 4 % (0-3) Basophils (%) (Auto) 0 % (0-3) Neutrophils # (Auto) 3.9 x10^3/uL (1.8-7.7) Lymphocytes # (Auto) 1.4 x10^3/uL (1.0-4.8) Monocytes # (Auto) 0.5 x10^3/uL (0.0-1.1) Eosinophils # (Auto) 0.2 x10^3/uL (0.0-0.7) Basophils # (Auto) 0.0 x10^3/uL (0.0-0.2) Sodium Level 141 mmol/L (136-145) Potassium Level 5.2 mmol/L (3.5-5.1) Chloride Level 105 mmol/L (98-107) Carbon Dioxide Level 30 mmol/L (21-32) Anion Gap 6 (6-14) Blood Urea Nitrogen 14 mg/dL (7-20) Creatinine 0.9 mg/dL (0.6-1.0) Estimated GFR (Cockcroft-Gault) 60.6 Glucose Level 95 mg/dL (70-99) Calcium Level 9.5 mg/dL (8.5-10.1) Medications Active Scripts Medications Dose Route/Sig Max Daily Dose Days Date Category Pravastatin Sodium 10 Mg Tablet 10 Mg PO DAILY 10/08/20 Reported Tramadol Hcl 50 Mg Tablet 50 Mg PO Q6HRS PRN 10/08/20 Reported Fluticasone Propionate Nasal Elim (Fluticasone Propionate) 16 Gm Elim.susp 2 Elim NS DAILY 09/02/18 Reported Anoro Ellipta 62.5-25 Mcg Inh (Umeclidinium Brm/Vilanterol Tr) 1 Each Disk.w.dev 1 Each IH DAILY 09/02/18 Reported Proair Hfa Inhaler (Albuterol Sulfate) 8.5 Gm Hfa.aer.ad 1 Puff INH PRN Q6HRS PRN 09/02/18 Reported Toprol Xl (Metoprolol Succinate) 25 Mg Tab.er.24h 12.5 Mg PO DAILY 09/02/18 Reported Aspir-Low (Aspirin) 81 Mg Tablet.dr 81 Mg PO DAILY 09/02/18 Reported Comments Chest x-ray reviewed 04/21/2021. No pneumothorax Chest x-ray reviewed 04/20/2021. Mild improvement in right apical pneumothorax. Chest x-ray reviewed 04/19/2021. Slight increase in right upper lobe pneumothorax, still about 10 to 15%. Unchanged subcu air Impression . IMPRESSION: Pneumothorax, status post fine needle aspiration of a right-sided pulmonary nodule, expected in up to 20% of the cases. 2. History of lung cancer 3. Tobacco dependent 4. COPD Plan . Chest x-ray reviewed from today. There is no air leak. And there is no pneumothorax. We will change the chest tube to waterseal only. If the lung remains inflated, will clamp the chest tube tomorrow. Follow daily x-rays Pathology consistent with squamous cell lung carcinoma EFREN THOMPSON MD Apr 21, 2021 10:42
[2021-04-21 11:00] VITALS: BP 116/72
--- NOTE | 2021-04-21 11:43 | PDOC ---
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 She actually has undergone radiation therapy and I think chemotherapy. Things have been going well, but she now has developed a new left lung nodule. The patient was sent in to Dr. Parson of the Interventional Radiology department to do a biopsy of the lung nodule. Postprocedure, she had a small pneumothorax. Dr. Parson called me and explained the situation. We have decided to admit the patient. We placed a chest tube. We are consulting Pulmonary Medicine. 04/17 Patient evaluated at bedside, she was resting when evaluated. Chest tube is still in place. Chest x-ray x-ray shows mild worsening of pneumo. Pulmonary consulted evaluating. 04/18/2021 No acute events overnight. Patient's chest tube does not have any air leak today. We will continue on suction. Repeat chest x-ray daily and as needed. Will defer to pulmonology as they are also following and managing chest tube. We will plan on discharge once chest tube has been discontinued and repeat chest x-ray shows no more pneumothorax. Patient's chart, labs, images were reviewed and discussed with RN 04/19/2021 No acute events overnight. Patient saturating well on 96% on room air. Decreased in her apical pneumothorax seen on chest x-ray. Patient's chart, la bs, images were reviewed and discussed with RN 04/20/2021 No acute events overnight. Patient seen and examined bedside. Chest wall to suction with minimal air leak. No dyspnea. Chest x-ray showed decreased and apical pneumothorax from 20 mm to 8 mm. In addition to my E/M visit, advance care planning done with A total time of 20 minutes was spent from 8:00 to 820 face to face in discussion with the patient regarding their goals of care, and explained to her the options for conservative versus surgical management. The more aggressive route would be to do a pleurodesis in order to keep the collapsed lung adhered to the pleural membrane if possible. Mayito out diagram for patient for better understanding. Patient's chart, labs, images were reviewed and discussed with RN 9/12 Patient evaluated at bedside. No major events overnight. This morning denying any sort of shortness of breath or cough. Chest x-ray looks improved this morning. Chest tube to waterseal today per pulmonary. Daily chest x-ray. Vitals/I&O Vitals/I&O: Vital Signs Date Time Temp Pulse Resp B/P (MAP) Pulse Ox O2 Delivery O2 Flow Rate FiO2 04/21/21 11:34 97 Room Air 04/21/21 09:19 63 136/78 04/21/21 07:00 97.5 18 97.5 I & O 04/20/21 04/20/21 04/21/21 15:00 23:00 07:00 Intake Total 240 ml 120 ml Balance 240 ml 120 ml Physical Exam General: Alert, Oriented X3, Cooperative Heart: Regular rate Lungs: Clear Abdomen: Normal bowel sounds, Soft Extremities: No edema, Normal pulses Skin: No significant lesion Labs Labs: Laboratory Tests Test 04/21/21 06:50 White Blood Count 6.1 x10^3/uL (4.0-11.0) Red Blood Count 5.05 x10^6/uL (3.50-5.40) Hemoglobin 15.3 g/dL (12.0-15.5) Hematocrit 45.8 % (36.0-47.0) Mean Corpuscular Volume 91 fL (79-100) Mean Corpuscular Hemoglobin 30 pg (25-35) Mean Corpuscular Hemoglobin Concent 33 g/dL (31-37) Red Cell Distribution Width 14.0 % (11.5-14.5) Platelet Count 220 x10^3/uL (140-400) Neutrophils (%) (Auto) 64 % (31-73) Lymphocytes (%) (Auto) 23 % (24-48) Monocytes (%) (Auto) 8 % (0-9) Eosinophils (%) (Auto) 4 % (0-3) Basophils (%) (Auto) 0 % (0-3) Neutrophils # (Auto) 3.9 x10^3/uL (1.8-7.7) Lymphocytes # (Auto) 1.4 x10^3/uL (1.0-4.8) Monocytes # (Auto) 0.5 x10^3/uL (0.0-1.1) Eosinophils # (Auto) 0.2 x10^3/uL (0.0-0.7) Basophils # (Auto) 0.0 x10^3/uL (0.0-0.2) Sodium Level 141 mmol/L (136-145) Potassium Level 5.2 mmol/L (3.5-5.1) Chloride Level 105 mmol/L (98-107) Carbon Dioxide Level 30 mmol/L (21-32) Anion Gap 6 (6-14) Blood Urea Nitrogen 14 mg/dL (7-20) Creatinine 0.9 mg/dL (0.6-1.0) Estimated GFR (Cockcroft-Gault) 60.6 Glucose Level 95 mg/dL (70-99) Calcium Level 9.5 mg/dL (8.5-10.1) Comment Review of Relevant I have reviewed the following items mami (where applicable) has been applied. Justifications for Admission Other Justification INDY ALEJANDRE MD Apr 21, 2021 11:43
[2021-04-21 15:00] VITALS: BP 108/53
[2021-04-21 19:00] VITALS: BP 107/54
[2021-04-21] MEDS: ATORVASTATIN CALCIUM 10 MG TABLET. PO SCH (21:21)
[2021-04-22 02:34] VITALS: BP 107/45
[2021-04-22 07:00] VITALS: BP 108/58
[2021-04-22] MEDS: IPRATRPIUM/ALBUTEROL 0.5/2.5MG 3 ML NEBU. NEB SCH ×4 (07:13→20:04)
[2021-04-22] MEDS: BUDESONIDE 0.5 MG/2 ML NEBU. NEB SCH ×2 (07:13→20:03)
[2021-04-22 07:29] LABS: BASO % 0 % (0-3); EOS # 0.2 x10^3/uL (0.0-0.7); EOS % 4 % (0-3); HEMATOCRIT 45.7 % (36.0-47.0); HEMOGLOBIN 15.2 g/dL (12.0-15.5); LYMPH # 1.5 x10^3/uL (1.0-4.8); LYMPH % 23 % (24-48); MEAN CORPUSCULAR HEMOGLOBIN 30 pg (25-35); MEAN CORPUSCULAR HGB CONC 33 g/dL (31-37); MEAN CORPUSCULAR VOLUME 90 fL (79-100); MONO # 0.6 x10^3/uL (0.0-1.1); MONO % 9 % (0-9); NEUT % 64 % (31-73); PLATELET COUNT 220 x10^3/uL (140-400); RED BLOOD COUNT 5.06 x10^6/uL (3.50-5.40); WHITE BLOOD COUNT 6.3 x10^3/uL (4.0-11.0)
[2021-04-22 07:41] LABS: CALCIUM 9.4 mg/dL (8.5-10.1); CREATININE 0.9 mg/dL (0.6-1.0); GFR 60.6; POTASSIUM 4.5 mmol/L (3.5-5.1)
--- NOTE | 2021-04-22 08:48 | RAD ---
EXAM: Chest, single view. HISTORY: Pneumothorax. COMPARISON: 04/21/2021 FINDINGS: A frontal view of the chest is obtained. There is a stable tiny right apical pneumothorax. There is stable right neck and chest wall soft tissue emphysema. There are stable bilateral upper lob e nodular opacities, better characterized on the PET/CT performed 04/05/2021. The nodule within the couch perior segment of the right lower lobe on the prior PET/CT is not well seen radiographically. There i s a pleural drainage catheter overlying the right mid thorax. The heart is normal in size. IMPRESSION: 1. Stable tiny right pneumothorax and right neck and chest wall soft tissue emphysema. There is stabl e positioning of a right pleural drainage catheter over the mid thorax. 2. Stable bilateral upper lobe nodular opacities. These findings and a nodule within the superior seg ment of the right lower lobe are better characterized on a PET/CT dated 04/05/2021. Electronically signed by: Karen Go MD (04/22/2021 8:46 AM) [id number]
[2021-04-22] MEDS: FLUTICASONE 50MCG/NASAL SPRAY 16GM BOTTLE. NS SCH (08:51)
[2021-04-22] MEDS: ASPIRIN ENTERIC COATED 81 MG TABLET.DR. PO SCH (08:51)
[2021-04-22] MEDS: METOPROLOL SUCC 24HR ER 25 MG TAB.ER.24H. PO SCH (09:00)
--- NOTE | 2021-04-22 10:41 | PDOC ---
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 She actually has undergone radiation therapy and I think chemotherapy. Things have been going well, but she now has developed a new left lung nodule. The patient was sent in to Dr. Parson of the Interventional Radiology department to do a biopsy of the lung nodule. Postprocedure, she had a small pneumothorax. Dr. Parson called me and explained the situation. We have decided to admit the patient. We placed a chest tube. We are consulting Pulmonary Medicine. 04/17 Patient evaluated at bedside, she was resting when evaluated. Chest tube is still in place. Chest x-ray x-ray shows mild worsening of pneumo. Pulmonary consulted evaluating. 04/18/2021 No acute events overnight. Patient's chest tube does not have any air leak today. We will continue on suction. Repeat chest x-ray daily and as needed. Will defer to pulmonology as they are also following and managing chest tube. We will plan on discharge once chest tube has been discontinued and repeat chest x-ray shows no more pneumothorax. Patient's chart, labs, images were reviewed and discussed with RN 04/19/2021 No acute events overnight. Patient saturating well on 96% on room air. Decreased in her apical pneumothorax seen on chest x-ray. Patient's chart, labs, images were reviewed and discussed with RN 04/20/2021 No acute events overnight. Patient seen and examined bedside. Chest wall to suction with minimal air leak. No dyspnea. Chest x-ray showed decreased and apical pneumothorax from 20 mm to 8 mm. In addition to my E/M visit, advance care planning done with A total time of 20 minutes was spent from 8:00 to 820 face to face in discussion with the patient regarding their goals of care, and explained to her the options for conservative versus surgical management. The more aggressive route would be to do a pleurodesis in order to keep the collapsed lung adhered to the pleural membrane if possible. Maiyto out diagram for patient for better understanding. Patient's chart, labs, images were reviewed and discussed with RN 04/21 Patient evaluated at bedside. No major events overnight. This morning denying any sort of shortness of breath or cough. Chest x-ray looks improved this morning. Chest tube to waterseal today per pulmonary. Daily chest x-ray. 04/22 evaluated at bedside. denying any sort of shortness of breath or cough. Chest x- ray looks improved this morning. Chest tube to waterseal today per pulmonary. Daily chest x-ray. clamp the chest tube 24 hrs. If the lung remains inflated, will dc tube in am Pathology consistent with squamous cell lung carcinoma d/w rn Vitals Vitals Vital Signs Date Time Temp Pulse Resp B/P (MAP) Pulse Ox O2 Delivery O2 Flow Rate FiO2 04/22/21 07:14 95 Room Air 04/22/21 07:00 97.9 65 18 108/58 (75) 97.9 Physical Exam General: Alert, Oriented X3, Cooperative, No acute distress Heart: Regular rate Lungs: Clear Abdomen: Normal bowel sounds, Soft Extremities: No cyanosis, No edema, Normal pulses Skin: No significant lesion Labs LABS talk about your own wishes for healthcare in case youre ever not able to tell your loved ones or healthcare team what your wishes are. If you became really sick tomorrow, would your loved ones or healthcare team know what your wishes were? Here are some examples of different sets of goals and health care directives for your conversations: My wish is to use all medical therapies including resuscitation (such as CPR) and artificial life-sustaining treatments (such as machines and medicine) in an intensive care unit, to keep me alive if at all possible. My wish is to live as long as possible, but I dont want attempts to bring me back to life if my heart and breathing stop. I would like full medical care but without using resuscitation or artificial life-sustaining intensive treatments, if these are unlikely to make me live longer or restore me to a certain quality of life. I will accept treatments that try to fix medical problems, but if Im not getting better or going to have a certain quality of life, I would want to switch to focusing only on my comfort and letting my happen naturally. My wish is for healthcare to focus on my comfort and lessen suffering. I would like medical care that focuses only on my quality of life and that allows me to naturally. Consider: What does a good quality of life mean for me? For many people, it is the ability to live independently and tell their own story. I may define it differently. Under what circumstances would I not want to be kept alive by medical treatments, resuscitation, or intensive care? What kind of changes to my health or life might make me change my mind? If I clearly am facing the last chapter of my life, how do I want the story to end? Who do I want to speak for me if I cant speak for myself? Do they understand my preferences? Are they willing to assume the role of my Durable Power of Chemical Research Technician? Can I change my Goals of Care Designation? Yes, your Goals of Care Designation can be changed at any time. It should be reviewed if: your health condition changes your circumstances change (such as new understanding) you are transferred or admitted to another healthcare setting dpoa review, to pt portal 19 min and question review Laboratory Tests Test 04/22/21 07:10 White Blood Count 6.3 x10^3/uL (4.0-11.0) Red Blood Count 5.06 x10^6/uL (3.50-5.40) Hemoglobin 15.2 g/dL (12.0-15.5) Hematocrit 45.7 % (36.0-47.0) Mean Corpuscular Volume 90 fL (79-100) Mean Corpuscular Hemoglobin 30 pg (25-35) Mean Corpuscular Hemoglobin Concent 33 g/dL (31-37) Red Cell Distribution Width 14.0 % (11.5-14.5) Platelet Count 220 x10^3/uL (140-400) Neutrophils (%) (Auto) 64 % (31-73) Lymphocytes (%) (Auto) 23 % (24-48) Monocytes (%) (Auto) 9 % (0-9) Eosinophils (%) (Auto) 4 % (0-3) Basophils (%) (Auto) 0 % (0-3) Neutrophils # (Auto) 4.0 x10^3/uL (1.8-7.7) Lymphocytes # (Auto) 1.5 x10^3/uL (1.0-4.8) Monocytes # (Auto) 0.6 x10^3/uL (0.0-1.1) Eosinophils # (Auto) 0.2 x10^3/uL (0.0-0.7) Basophils # (Auto) 0.0 x10^3/uL (0.0-0.2) Sodium Level 142 mmol/L (136-145) Potassium Level 4.5 mmol/L (3.5-5.1) Chloride Level 105 mmol/L (98-107) Carbon Dioxide Level 31 mmol/L (21-32) Anion Gap 6 (6-14) Blood Urea Nitrogen 9 mg/dL (7-20) Creatinine 0.9 mg/dL (0.6-1.0) Estimated GFR (Cockcroft-Gault) 60.6 Glucose Level 88 mg/dL (70-99) Calcium Level 9.4 mg/dL (8.5-10.1) Comment Review of Relevant I have reviewed the following items mami (where applicable) has been applied. Labs Laboratory Tests Test 04/21/21 06:50 04/22/21 07:10 White Blood Count 6.1 x10^3/uL (4.0-11.0) 6.3 x10^3/uL (4.0-11.0) Red Blood Count 5.05 x10^6/uL (3.50-5.40) 5.06 x10^6/uL (3.50-5.40) Hemoglobin 15.3 g/dL (12.0-15.5) 15.2 g/dL (12.0-15.5) Hematocrit 45.8 % (36.0-47.0) 45.7 % (36.0-47.0) Mean Corpuscular Volume 91 fL (79-100) 90 fL (79-100) Mean Corpuscular Hemoglobin 30 pg (25-35) 30 pg (25-35) Mean Corpuscular Hemoglobin Concent 33 g/dL (31-37) 33 g/dL (31-37) Red Cell Distribution Width 14.0 % (11.5-14.5) 14.0 % (11.5-14.5) Platelet Count 220 x10^3/uL (140-400) 220 x10^3/uL (140-400) Neutrophils (%) (Auto) 64 % (31-73) 64 % (31-73) Lymphocytes (%) (Auto) 23 % (24-48) 23 % (24-48) Monocytes (%) (Auto) 8 % (0-9) 9 % (0-9) Eosinophils (%) (Auto) 4 % (0-3) 4 % (0-3) Basophils (%) (Auto) 0 % (0-3) 0 % (0-3) Neutrophils # (Auto) 3.9 x10^3/uL (1.8-7.7) 4.0 x10^3/uL (1.8-7.7) Lymphocytes # (Auto) 1.4 x10^3/uL (1.0-4.8) 1.5 x10^3/uL (1.0-4.8) Monocytes # (Auto) 0.5 x10^3/uL (0.0-1.1) 0.6 x10^3/uL (0.0-1.1) Eosinophils # (Auto) 0.2 x10^3/uL (0.0-0.7) 0.2 x10^3/uL (0.0-0.7) Basophils # (Auto) 0.0 x10^3/uL (0.0-0.2) 0.0 x10^3/uL (0.0-0.2) Sodium Level 141 mmol/L (136-145) 142 mmol/L (136-145) Potassium Level 5.2 mmol/L (3.5-5.1) 4.5 mmol/L (3.5-5.1) Chloride Level 105 mmol/L (98-107) 105 mmol/L (98-107) Carbon Dioxide Level 30 mmol/L (21-32) 31 mmol/L (21-32) Anion Gap 6 (6-14) 6 (6-14) Blood Urea Nitrogen 14 mg/dL (7-20) 9 mg/dL (7-20) Creatinine 0.9 mg/dL (0.6-1.0) 0.9 mg/dL (0.6-1.0) Estimated GFR (Cockcroft-Gault) 60.6 60.6 Glucose Level 95 mg/dL (70-99) 88 mg/dL (70-99) Calcium Level 9.5 mg/dL (8.5-10.1) 9.4 mg/dL (8.5-10.1) Laboratory Tests Test 04/22/21 07:10 White Blood Count 6.3 x10^3/uL (4.0-11.0) Red Blood Count 5.06 x10^6/uL (3.50-5.40) Hemoglobin 15.2 g/dL (12.0-15.5) Hematocrit 45.7 % (36.0-47.0) Mean Corpuscular Volume 90 fL (79-100) Mean Corpuscular Hemoglobin 30 pg (25-35) Mean Corpuscular Hemoglobin Concent 33 g/dL (31-37) Red Cell Distribution Width 14.0 % (11.5-14.5) Platelet Count 220 x10^3/uL (140-400) Neutrophils (%) (Auto) 64 % (31-73) Lymphocytes (%) (Auto) 23 % (24-48) Monocytes (%) (Auto) 9 % (0-9) Eosinophils (%) (Auto) 4 % (0-3) Basophils (%) (Auto) 0 % (0-3) Neutrophils # (Auto) 4.0 x10^3/uL (1.8-7.7) Lymphocytes # (Auto) 1.5 x10^3/uL (1.0-4.8) Monocytes # (Auto) 0.6 x10^3/uL (0.0-1.1) Eosinophils # (Auto) 0.2 x10^3/uL (0.0-0.7) Basophils # (Auto) 0.0 x10^3/uL (0.0-0.2) Sodium Level 142 mmol/L (136-145) Potassium Level 4.5 mmol/L (3.5-5.1) Chloride Level 105 mmol/L (98-107) Carbon Dioxide Level 31 mmol/L (21-32) Anion Gap 6 (6-14) Blood Urea Nitrogen 9 mg/dL (7-20) Creatinine 0.9 mg/dL (0.6-1.0) Estimated GFR (Cockcroft-Gault) 60.6 Glucose Level 88 mg/dL (70-99) Calcium Level 9.4 mg/dL (8.5-10.1) Medications Current Medications Lidocaine HCl (Buffered Lidocaine 1%) 3 ml Mobile Shareholder-MED ONCE .ROUTE ; Start 04/16/21 at 10:12; Stop 04/16/21 at 10:12; Status DC Midazolam HCl (Versed) 2 mg STK-MED ONCE .ROUTE ; Start 04/16/21 at 10:37; Stop 04/16/21 at 10:37; Status DC Fentanyl Citrate (Fentanyl 2ml Vial) 100 mcg STK-MED ONCE .ROUTE ; Start 04/16/21 at 10:37; Stop 04/16/21 at 10:37; Status DC Lidocaine HCl (Buffered Lidocaine 1%) 5 ml 1X ONCE IJ Last administered on 04/16/21at 11:09; Start 04/16/21 at 11:00; Stop 04/16/21 at 11:01; Status DC Midazolam HCl (Versed) 1 mg 1X ONCE IV Last administered on 04/16/21at 11:10; Start 04/16/21 at 11:00; Stop 04/16/21 at 11:01; Status DC Fentanyl Citrate (Fentanyl 2ml Vial) 50 mcg 1X ONCE IV Last administered on 04/16/21at 11:10; Start 04/16/21 at 11:00; Stop 04/16/21 at 11:01; Status DC Albuterol Sulfate (Ventolin Neb Soln) 2.5 mg PRN Q6HRS PRN NEB SHORTNESS OF BREATH; Start 04/16/21 at 21:30 Aspirin (Ecotrin) 81 mg DAILY PO Last administered on 04/22/21at 08:51; Start 04/17/21 at 09:00 Fluticasone Propionate (Flonase) 2 spray DAILY NS ; Start 04/17/21 at 09:00 Metoprolol Succinate (Toprol Xl) 12.5 mg DAILY PO Last administered on 04/21/21at 09:19; Start 04/17/21 at 09:00 Atorvastatin Calcium (Lipitor) 5 mg QHS PO Last administered on 04/21/21at 21:21; Start 04/16/21 at 22:00 Budesonide (Pulmicort) 0.5 mg RTBID NEB Last administered on 04/22/21at 07:13; Start 04/17/21 at 08:00 Oxycodone/ Acetaminophen (Percocet 5/325) 1 tab PRN Q6HRS PRN PO PAIN; Start 04/16/21 at 21:15 Ibuprofen (Motrin) 400 mg PRN Q6HRS PRN PO INFLAMMATION; Start 04/16/21 at 21:15 Albuterol/ Ipratropium (Duoneb) 3 ml RTQID NEB Last administered on 04/22/21at 07:13; Start 04/17/21 at 08:00 Active Scripts Active Reported Pravastatin Sodium 10 Mg Tablet 10 Mg PO DAILY Tramadol Hcl 50 Mg Tablet 50 Mg PO Q6HRS PRN Fluticasone Propionate Nasal [place] (Fluticasone Propionate) 16 Gm [place].susp 2 [place] NS DAILY Anoro Ellipta 62.5-25 Mcg Inh (Umeclidinium Brm/Vilanterol Tr) 1 Each Disk.w.dev 1 Each IH DAILY Proair Hfa Inhaler (Albuterol Sulfate) 8.5 Gm Hfa.aer.ad 1 Puff INH PRN Q6HRS PRN Toprol Xl (Metoprolol Succinate) 25 Mg Tab.er.24h 12.5 Mg PO DAILY Aspir-Low (Aspirin) 81 Mg Tablet.dr 81 Mg PO DAILY Vitals/I & O Vital Sign - Last 24 Hours 04/21/21 04/21/21 04/21/21 04/21/21 11:00 11:34 15:00 15:48 Temp 98.2 97.5 98.2 97.5 Pulse 62 67 Resp 18 18 B/P (MAP) 116/72 (87) 108/53 (71) Pulse Ox 94 97 94 96 O2 Delivery Room Air Room Air Room Air Room Air 04/21/21 04/21/21 04/21/21 04/22/21 19:00 19:45 20:21 02:34 Temp 98.1 97.9 98.1 97.9 Pulse 54 56 Resp 18 18 B/P (MAP) 107/54 (71) 107/45 (65) Pulse Ox 95 96 94 O2 Delivery Room Air Room Air Room Air Room Air 04/22/21 04/22/21 07:00 07:14 Temp 97.9 97.9 Pulse 65 Resp 18 B/P (MAP) 108/58 (75) Pulse Ox 95 95 O2 Delivery Room Air Room Air Intake and Output 04/21/21 04/21/21 04/22/21 15:00 23:00 07:00 Intake Total 320 ml 200 ml 300 ml Balance 320 ml 200 ml 300 ml Justicifation of Admission Dx: Justifications for Admission: Justification of Admission Dx: Yes Chronic Renal Failure: Metabolic Abnormality RONY ORNELAS MD Apr 22, 2021 10:41
[2021-04-22 11:00] VITALS: BP 99/66
--- NOTE | 2021-04-22 11:30 | NUR ---
Chest tube clamped
--- NOTE | 2021-04-22 11:40 | NUR ---
SW following. Discussed with RN, pt from home alone, room air, cardiac diet. Pt hoping to have the chest tube removed so she can go home today. RN advised no SW needs at this time. SW will continue to follow.
--- NOTE | 2021-04-22 12:06 | PDOC ---
PULMONARY PROGRESS NOTES DATE: 04/22/21 TIME: 12:04 Subjective Patient feels better, not more short of air Vitals Vital Signs Date Time Temp Pulse Resp B/P (MAP) Pulse Ox O2 Delivery O2 Flow Rate FiO2 04/22/21 11:41 97 Room Air 04/22/21 11:00 97.6 67 16 99/66 (77) 97.6 ROS: No Nausea, No Chest Pain, No Abdominal Pain, No Increase Cough General: Alert Lungs: Clear Cardiovascular: S1, S2 Abdomen: Soft Neuro Exam: Alert Extremities: No Edema Skin: Warm Labs Laboratory Tests Test 04/21/21 06:50 04/22/21 07:10 White Blood Count 6.1 x10^3/uL (4.0-11.0) 6.3 x10^3/uL (4.0-11.0) Red Blood Count 5.05 x10^6/uL (3.50-5.40) 5.06 x10^6/uL (3.50-5.40) Hemoglobin 15.3 g/dL (12.0-15.5) 15.2 g/dL (12.0-15.5) Hematocrit 45.8 % (36.0-47.0) 45.7 % (36.0-47.0) Mean Corpuscular Volume 91 fL (79-100) 90 fL (79-100) Mean Corpuscular Hemoglobin 30 pg (25-35) 30 pg (25-35) Mean Corpuscular Hemoglobin Concent 33 g/dL (31-37) 33 g/dL (31-37) Red Cell Distribution Width 14.0 % (11.5-14.5) 14.0 % (11.5-14.5) Platelet Count 220 x10^3/uL (140-400) 220 x10^3/uL (140-400) Neutrophils (%) (Auto) 64 % (31-73) 64 % (31-73) Lymphocytes (%) (Auto) 23 % (24-48) 23 % (24-48) Monocytes (%) (Auto) 8 % (0-9) 9 % (0-9) Eosinophils (%) (Auto) 4 % (0-3) 4 % (0-3) Basophils (%) (Auto) 0 % (0-3) 0 % (0-3) Neutrophils # (Auto) 3.9 x10^3/uL (1.8-7.7) 4.0 x10^3/uL (1.8-7.7) Lymphocytes # (Auto) 1.4 x10^3/uL (1.0-4.8) 1.5 x10^3/uL (1.0-4.8) Monocytes # (Auto) 0.5 x10^3/uL (0.0-1.1) 0.6 x10^3/uL (0.0-1.1) Eosinophils # (Auto) 0.2 x10^3/uL (0.0-0.7) 0.2 x10^3/uL (0.0-0.7) Basophils # (Auto) 0.0 x10^3/uL (0.0-0.2) 0.0 x10^3/uL (0.0-0.2) Sodium Level 141 mmol/L (136-145) 142 mmol/L (136-145) Potassium Level 5.2 mmol/L (3.5-5.1) 4.5 mmol/L (3.5-5.1) Chloride Level 105 mmol/L (98-107) 105 mmol/L (98-107) Carbon Dioxide Level 30 mmol/L (21-32) 31 mmol/L (21-32) Anion Gap 6 (6-14) 6 (6-14) Blood Urea Nitrogen 14 mg/dL (7-20) 9 mg/dL (7-20) Creatinine 0.9 mg/dL (0.6-1.0) 0.9 mg/dL (0.6-1.0) Estimated GFR (Cockcroft-Gault) 60.6 60.6 Glucose Level 95 mg/dL (70-99) 88 mg/dL (70-99) Calcium Level 9.5 mg/dL (8.5-10.1) 9.4 mg/dL (8.5-10.1) Laboratory Tests Test 04/22/21 07:10 White Blood Count 6.3 x10^3/uL (4.0-11.0) Red Blood Count 5.06 x10^6/uL (3.50-5.40) Hemoglobin 15.2 g/dL (12.0-15.5) Hematocrit 45.7 % (36.0-47.0) Mean Corpuscular Volume 90 fL (79-100) Mean Corpuscular Hemoglobin 30 pg (25-35) Mean Corpuscular Hemoglobin Concent 33 g/dL (31-37) Red Cell Distribution Width 14.0 % (11.5-14.5) Platelet Count 220 x10^3/uL (140-400) Neutrophils (%) (Auto) 64 % (31-73) Lymphocytes (%) (Auto) 23 % (24-48) Monocytes (%) (Auto) 9 % (0-9) Eosinophils (%) (Auto) 4 % (0-3) Basophils (%) (Auto) 0 % (0-3) Neutrophils # (Auto) 4.0 x10^3/uL (1.8-7.7) Lymphocytes # (Auto) 1.5 x10^3/uL (1.0-4.8) Monocytes # (Auto) 0.6 x10^3/uL (0.0-1.1) Eosinophils # (Auto) 0.2 x10^3/uL (0.0-0.7) Basophils # (Auto) 0.0 x10^3/uL (0.0-0.2) Sodium Level 142 mmol/L (136-145) Potassium Level 4.5 mmol/L (3.5-5.1) Chloride Level 105 mmol/L (98-107) Carbon Dioxide Level 31 mmol/L (21-32) Anion Gap 6 (6-14) Blood Urea Nitrogen 9 mg/dL (7-20) Creatinine 0.9 mg/dL (0.6-1.0) Estimated GFR (Cockcroft-Gault) 60.6 Glucose Level 88 mg/dL (70-99) Calcium Level 9.4 mg/dL (8.5-10.1) Medications Active Scripts Medications Dose Route/Sig Max Daily Dose Days Date Category Pravastatin Sodium 10 Mg Tablet 10 Mg PO DAILY 10/08/20 Reported Tramadol Hcl 50 Mg Tablet 50 Mg PO Q6HRS PRN 10/08/20 Reported Fluticasone Propionate Nasal [place] (Fluticasone Propionate) 16 Gm [place].susp 2 [place] NS DAILY 09/02/18 Reported Anoro Ellipta 62.5-25 Mcg Inh (Umeclidinium Brm/Vilanterol Tr) 1 Each Disk.w.dev 1 Each IH DAILY 09/02/18 Reported Proair Hfa Inhaler (Albuterol Sulfate) 8.5 Gm Hfa.aer.ad 1 Puff INH PRN Q6HRS PRN 09/02/18 Reported Toprol Xl (Metoprolol Succinate) 25 Mg Tab.er.24h 12.5 Mg PO DAILY 09/02/18 Reported Aspir-Low (Aspirin) 81 Mg Tablet.dr 81 Mg PO DAILY 09/02/18 Reported Comments Chest x-ray reviewed 04/21/2021. No pneumothorax Chest x-ray reviewed 04/20/2021. Mild improvement in right apical pneumothorax. Chest x-ray reviewed 04/19/2021. Slight increase in right upper lobe pneumothorax, still about 10 to 15%. Unchanged subcu air Impression . IMPRESSION: Pneumothorax, status post fine needle aspiration of a right-sided pulmonary nodule, expected in up to 20% of the cases. 2. History of lung cancer 3. Tobacco dependent 4. COPD Plan . Chest x-ray reviewed from today. There is no air leak. And there is no definite pneumothorax. will clamp the chest tube 24 hrs. If the lung remains inflated, will dc tube in am Pathology consistent with squamous cell lung carcinoma EFREN THOMPSON MD Apr 22, 2021 12:06
[2021-04-22 15:00] VITALS: BP 99/56
[2021-04-22 19:00] VITALS: BP 106/62
[2021-04-22] MEDS: ATORVASTATIN CALCIUM 10 MG TABLET. PO SCH (20:34)
[2021-04-22 23:00] VITALS: BP 114/60
[2021-04-23 03:00] VITALS: BP 139/46
[2021-04-23 07:00] VITALS: BP 137/85
[2021-04-23] MEDS: BUDESONIDE 0.5 MG/2 ML NEBU. NEB SCH (07:19)
[2021-04-23] MEDS: IPRATRPIUM/ALBUTEROL 0.5/2.5MG 3 ML NEBU. NEB SCH ×2 (07:19→11:43)
[2021-04-23 07:59] LABS: BASO % 0 % (0-3); EOS # 0.2 x10^3/uL (0.0-0.7); EOS % 4 % (0-3); HEMATOCRIT 44.4 % (36.0-47.0); HEMOGLOBIN 14.9 g/dL (12.0-15.5); LYMPH # 1.5 x10^3/uL (1.0-4.8); LYMPH % 24 % (24-48); MEAN CORPUSCULAR HEMOGLOBIN 30 pg (25-35); MEAN CORPUSCULAR HGB CONC 34 g/dL (31-37); MEAN CORPUSCULAR VOLUME 90 fL (79-100); MONO # 0.5 x10^3/uL (0.0-1.1); MONO % 8 % (0-9); NEUT % 64 % (31-73); PLATELET COUNT 227 x10^3/uL (140-400); RED BLOOD COUNT 4.93 x10^6/uL (3.50-5.40); RED CELL DISTRIBUTION WIDTH 13.6 % (11.5-14.5); WHITE BLOOD COUNT 6.2 x10^3/uL (4.0-11.0)
[2021-04-23 08:04] LABS: CALCIUM 9.3 mg/dL (8.5-10.1); CREATININE 0.8 mg/dL (0.6-1.0); GFR 69.4; POTASSIUM 4.5 mmol/L (3.5-5.1)
--- NOTE | 2021-04-23 08:21 | PDOC ---
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 She actually has undergone radiation therapy and I think chemotherapy. Things have been going well, but she now has developed a new left lung nodule. The patient was sent in to Dr. Parson of the Interventional Radiology department to do a biopsy of the lung nodule. Postprocedure, she had a small pneumothorax. Dr. Parson called me and explained the situation. We have decided to admit the patient. We placed a chest tube. We are consulting Pulmonary Medicine. 04/17 Patient evaluated at bedside, she was resting when evaluated. Chest tube is still in place. Chest x-ray x-ray shows mild worsening of pneumo. Pulmonary consulted evaluating. 04/18/2021 No acute events overnight. Patient's chest tube does not have any air leak today. We will continue on suction. Repeat chest x-ray daily and as needed. Will defer to pulmonology as they are also following and managing chest tube. We will plan on discharge once chest tube has been discontinued and repeat chest x-ray shows no more pneumothorax. Patient's chart, labs, images were reviewed and discussed with RN 04/19/2021 No acute events overnight. Patient saturating well on 96% on room air. Decreased in her apical pneumothorax seen on chest x-ray. Patient's chart, labs, images were reviewed and discussed with RN 04/20/2021 No acute events overnight. Patient seen and examined bedside. Chest wall to suction with minimal air leak. No dyspnea. Chest x-ray showed decreased and apical pneumothorax from 20 mm to 8 mm. In addition to my E/M visit, advance care planning done with A total time of 20 minutes was spent from 8:00 to 820 face to face in discussion with the patient regarding their goals of care, and explained to her the options for conservative versus surgical management. The more aggressive route would be to do a pleurodesis in order to keep the collapsed lung adhered to the pleural membrane if possible. Mayito out diagram for patient for better understanding. Patient's chart, labs, images were reviewed and discussed with RN 04/21 Patient evaluated at bedside. No major events overnight. This morning denying any sort of shortness of breath or cough. Chest x-ray looks improved this morning. Chest tube to waterseal today per pulmonary. Daily chest x-ray. 04/22 evaluated at bedside. denying any sort of shortness of breath or cough. Chest x- ray looks improved this morning. Chest tube to waterseal today per pulmonary. Daily chest x-ray. clamp the chest tube 24 hrs. If the lung remains inflated, will dc tube in am Pathology consistent with squamous cell lung carcinoma d/w rn 04-23 Chest x-ray reviewed from today. Tube was clamped in the last 24 hours. no pneumothorax. Chest tube removed this morning. Patient can be discharged from a pulmonary standpoint. Pathology consistent with squamous cell lung carcinoma d/c planning 33 min Vitals Vitals Vital Signs Date Time Temp Pulse Resp B/P (MAP) Pulse Ox O2 Delivery O2 Flow Rate FiO2 04/23/21 07:20 96 Room Air 04/23/21 07:00 97.4 84 18 137/85 (102) 97.4 Physical Exam General: Alert, Oriented X3, Cooperative, No acute distress Heart: Regular rate, Normal S1, Normal S2 Lungs: Clear Abdomen: Normal bowel sounds, Soft, No tenderness Extremities: No clubbing, No cyanosis, No edema, Normal pulses Skin: No significant lesion Labs LABS Laboratory Tests Test 04/23/21 07:35 White Blood Count 6.2 x10^3/uL (4.0-11.0) Red Blood Count 4.93 x10^6/uL (3.50-5.40) Hemoglobin 14.9 g/dL (12.0-15.5) Hematocrit 44.4 % (36.0-47.0) Mean Corpuscular Volume 90 fL (79-100) Mean Corpuscular Hemoglobin 30 pg (25-35) Mean Corpuscular Hemoglobin Concent 34 g/dL (31-37) Red Cell Distribution Width 13.6 % (11.5-14.5) Platelet Count 227 x10^3/uL (140-400) Neutrophils (%) (Auto) 64 % (31-73) Lymphocytes (%) (Auto) 24 % (24-48) Monocytes (%) (Auto) 8 % (0-9) Eosinophils (%) (Auto) 4 % (0-3) Basophils (%) (Auto) 0 % (0-3) Neutrophils # (Auto) 4.0 x10^3/uL (1.8-7.7) Lymphocytes # (Auto) 1.5 x10^3/uL (1.0-4.8) Monocytes # (Auto) 0.5 x10^3/uL (0.0-1.1) Eosinophils # (Auto) 0.2 x10^3/uL (0.0-0.7) Basophils # (Auto) 0.0 x10^3/uL (0.0-0.2) Sodium Level 141 mmol/L (136-145) Potassium Level 4.5 mmol/L (3.5-5.1) Chloride Level 105 mmol/L (98-107) Carbon Dioxide Level 30 mmol/L (21-32) Anion Gap 6 (6-14) Blood Urea Nitrogen 11 mg/dL (7-20) Creatinine 0.8 mg/dL (0.6-1.0) Estimated GFR (Cockcroft-Gault) 69.4 Glucose Level 94 mg/dL (70-99) Calcium Level 9.3 mg/dL (8.5-10.1) Comment Review of Relevant I have reviewed the following items mami (where applicable) has been applied. Labs Laboratory Tests Test 04/22/21 07:10 04/23/21 07:35 White Blood Count 6.3 x10^3/uL (4.0-11.0) 6.2 x10^3/uL (4.0-11.0) Red Blood Count 5.06 x10^6/uL (3.50-5.40) 4.93 x10^6/uL (3.50-5.40) Hemoglobin 15.2 g/dL (12.0-15.5) 14.9 g/dL (12.0-15.5) Hematocrit 45.7 % (36.0-47.0) 44.4 % (36.0-47.0) Mean Corpuscular Volume 90 fL (79-100) 90 fL (79-100) Mean Corpuscular Hemoglobin 30 pg (25-35) 30 pg (25-35) Mean Corpuscular Hemoglobin Concent 33 g/dL (31-37) 34 g/dL (31-37) Red Cell Distribution Width 14.0 % (11.5-14.5) 13.6 % (11.5-14.5) Platelet Count 220 x10^3/uL (140-400) 227 x10^3/uL (140-400) Neutrophils (%) (Auto) 64 % (31-73) 64 % (31-73) Lymphocytes (%) (Auto) 23 % (24-48) 24 % (24-48) Monocytes (%) (Auto) 9 % (0-9) 8 % (0-9) Eosinophils (%) (Auto) 4 % (0-3) 4 % (0-3) Basophils (%) (Auto) 0 % (0-3) 0 % (0-3) Neutrophils # (Auto) 4.0 x10^3/uL (1.8-7.7) 4.0 x10^3/uL (1.8-7.7) Lymphocytes # (Auto) 1.5 x10^3/uL (1.0-4.8) 1.5 x10^3/uL (1.0-4.8) Monocytes # (Auto) 0.6 x10^3/uL (0.0-1.1) 0.5 x10^3/uL (0.0-1.1) Eosinophils # (Auto) 0.2 x10^3/uL (0.0-0.7) 0.2 x10^3/uL (0.0-0.7) Basophils # (Auto) 0.0 x10^3/uL (0.0-0.2) 0.0 x10^3/uL (0.0-0.2) Sodium Level 142 mmol/L (136-145) 141 mmol/L (136-145) Potassium Level 4.5 mmol/L (3.5-5.1) 4.5 mmol/L (3.5-5.1) Chloride Level 105 mmol/L (98-107) 105 mmol/L (98-107) Carbon Dioxide Level 31 mmol/L (21-32) 30 mmol/L (21-32) Anion Gap 6 (6-14) 6 (6-14) Blood Urea Nitrogen 9 mg/dL (7-20) 11 mg/dL (7-20) Creatinine 0.9 mg/dL (0.6-1.0) 0.8 mg/dL (0.6-1.0) Estimated GFR (Cockcroft-Gault) 60.6 69.4 Glucose Level 88 mg/dL (70-99) 94 mg/dL (70-99) Calcium Level 9.4 mg/dL (8.5-10.1) 9.3 mg/dL (8.5-10.1) Laboratory Tests Test 04/23/21 07:35 White Blood Count 6.2 x10^3/uL (4.0-11.0) Red Blood Count 4.93 x10^6/uL (3.50-5.40) Hemoglobin 14.9 g/dL (12.0-15.5) Hematocrit 44.4 % (36.0-47.0) Mean Corpuscular Volume 90 fL (79-100) Mean Corpuscular Hemoglobin 30 pg (25-35) Mean Corpuscular Hemoglobin Concent 34 g/dL (31-37) Red Cell Distribution Width 13.6 % (11.5-14.5) Platelet Count 227 x10^3/uL (140-400) Neutrophils (%) (Auto) 64 % (31-73) Lymphocytes (%) (Auto) 24 % (24-48) Monocytes (%) (Auto) 8 % (0-9) Eosinophils (%) (Auto) 4 % (0-3) Basophils (%) (Auto) 0 % (0-3) Neutrophils # (Auto) 4.0 x10^3/uL (1.8-7.7) Lymphocytes # (Auto) 1.5 x10^3/uL (1.0-4.8) Monocytes # (Auto) 0.5 x10^3/uL (0.0-1.1) Eosinophils # (Auto) 0.2 x10^3/uL (0.0-0.7) Basophils # (Auto) 0.0 x10^3/uL (0.0-0.2) Sodium Level 141 mmol/L (136-145) Potassium Level 4.5 mmol/L (3.5-5.1) Chloride Level 105 mmol/L (98-107) Carbon Dioxide Level 30 mmol/L (21-32) Anion Gap 6 (6-14) Blood Urea Nitrogen 11 mg/dL (7-20) Creatinine 0.8 mg/dL (0.6-1.0) Estimated GFR (Cockcroft-Gault) 69.4 Glucose Level 94 mg/dL (70-99) Calcium Level 9.3 mg/dL (8.5-10.1) Medications Current Medications Lidocaine HCl (Buffered Lidocaine 1%) 3 ml STK-MED ONCE .ROUTE ; Start 04/16/21 at 10:12; Stop 04/16/21 at 10:12; Status DC Midazolam HCl (Versed) 2 mg STK-MED ONCE .ROUTE ; Start 04/16/21 at 10:37; Stop 04/16/21 at 10:37; Status DC Fentanyl Citrate (Fentanyl 2ml Vial) 100 mcg STK-MED ONCE .ROUTE ; Start 04/16/21 at 10:37; Stop 04/16/21 at 10:37; Status DC Lidocaine HCl (Buffered Lidocaine 1%) 5 ml 1X ONCE IJ Last administered on 04/16/21at 11:09; Start 04/16/21 at 11:00; Stop 04/16/21 at 11:01; Status DC Midazolam HCl (Versed) 1 mg 1X ONCE IV Last administered on 04/16/21at 11:10; Start 04/16/21 at 11:00; Stop 04/16/21 at 11:01; Status DC Fentanyl Citrate (Fentanyl 2ml Vial) 50 mcg 1X ONCE IV Last administered on 04/16/21at 11:10; Start 04/16/21 at 11:00; Stop 04/16/21 at 11:01; Status DC Albuterol Sulfate (Ventolin Neb Soln) 2.5 mg PRN Q6HRS PRN NEB SHORTNESS OF BREATH; Start 04/16/21 at 21:30 Aspirin (Ecotrin) 81 mg DAILY PO Last administered on 04/22/21at 08:51; Start 04/17/21 at 09:00 Fluticasone Propionate (Flonase) 2 spray DAILY NS ; Start 04/17/21 at 09:00 Metoprolol Succinate (Toprol Xl) 12.5 mg DAILY PO Last administered on 04/21/21at 09:19; Start 04/17/21 at 09:00 Atorvastatin Calcium (Lipitor) 5 mg QHS PO Last administered on 04/22/21at 20:34; Start 04/16/21 at 22:00 Budesonide (Pulmicort) 0.5 mg RTBID NEB Last administered on 04/23/21at 07:19; Start 04/17/21 at 08:00 Oxycodone/ Acetaminophen (Percocet 5/325) 1 tab PRN Q6HRS PRN PO PAIN; Start 04/16/21 at 21:15 Ibuprofen (Motrin) 400 mg PRN Q6HRS PRN PO INFLAMMATION; Start 04/16/21 at 21:15 Albuterol/ Ipratropium (Duoneb) 3 ml RTQID NEB Last administered on 04/23/21at 07:19; Start 04/17/21 at 08:00 Active Scripts Active Reported Pravastatin Sodium 10 Mg Tablet 10 Mg PO DAILY Tramadol Hcl 50 Mg Tablet 50 Mg PO Q6HRS PRN Fluticasone Propionate Nasal [place] (Fluticasone Propionate) 16 Gm [place].susp 2 [place] NS DAILY Anoro Ellipta 62.5-25 Mcg Inh (Umeclidinium Brm/Vilanterol Tr) 1 Each Disk.w.dev 1 Each IH DAILY Proair Hfa Inhaler (Albuterol Sulfate) 8.5 Gm Hfa.aer.ad 1 Puff INH PRN Q6HRS PRN Toprol Xl (Metoprolol Succinate) 25 Mg Tab.er.24h 12.5 Mg PO DAILY Aspir-Low (Aspirin) 81 Mg Tablet.dr 81 Mg PO DAILY Vitals/I & O Vital Sign - Last 24 Hours 04/22/21 04/22/21 04/22/21 04/22/21 09:00 11:00 11:41 15:00 Temp 97.6 97.6 97.6 97.6 Pulse 67 67 68 Resp 16 18 B/P (MAP) 99/66 99/66 (77) 99/56 (70) Pulse Ox 97 97 97 O2 Delivery Room Air Room Air Room Air 04/22/21 04/22/21 04/22/21 04/22/21 15:38 19:00 20:05 20:05 Temp 98.3 98.3 Pulse 61 Resp 18 B/P (MAP) 106/62 (77) Pulse Ox 95 97 O2 Delivery Room Air Room Air Room Air Room Air 04/22/21 04/22/21 04/23/2114/21 20:05 23:00 03:00 07:00 Temp 98.9 98.0 97.4 98.9 98.0 97.4 Pulse 76 59 84 Resp 18 18 18 B/P (MAP) 114/60 (78) 139/46 (77) 137/85 (102) Pulse Ox 97 95 98 94 O2 Delivery Room Air Room Air Room Air Room Air 04/23/21 07:20 Pulse Ox 96 O2 Delivery Room Air Intake and Output 0 04/22/21 04/22/21 04/23/21 15:00 23:00 07:00 Intake Total 280 ml Output Total 2 ml Balance 278 ml Justicifation of Admission Dx: Justifications for Admission: Justification of Admission Dx: Yes Chronic Renal Failure: Metabolic Abnormality RONY ORNELAS MD Apr 23, 2021 08:21
--- NOTE | 2021-04-23 08:27 | RAD ---
EXAM: Chest, single view. HISTORY: Pneumothorax. COMPARISON: 04/22/2021 FINDINGS: A frontal view of the chest is obtained. There is a tiny stable right apical pneumothorax. There is stable soft tissue emphysema within the neck and right chest wall. There is stable positioni ng of a right pleural drainage catheter overlying the upper mid thorax. There is emphysema. There are stable nodular opacities overlying the bilateral upper lobes. The heart is normal in size. There is no pleural effusion. IMPRESSION: 1. Stable suspected tiny right apical pneumothorax and unchanged neck and chest wall soft tissue emph ysema and pleural drainage catheter positioning. 2. Emphysema. 3. Stable bilateral upper lobe nodular opacities, better characterized on a PET/CT dated 04/05/2021. Electronically signed by: Karen Go MD (04/23/2021 8:25 AM) [id number]
[2021-04-23] MEDS: ASPIRIN ENTERIC COATED 81 MG TABLET.DR. PO SCH (08:45)
[2021-04-23] MEDS: METOPROLOL SUCC 24HR ER 25 MG TAB.ER.24H. PO SCH (08:47)
[2021-04-23] MEDS: FLUTICASONE 50MCG/NASAL SPRAY 16GM BOTTLE. NS SCH (08:48)
--- NOTE | 2021-04-23 10:12 | PDOC ---
PULMONARY PROGRESS NOTES DATE: 04/23/21 TIME: 10:11 Subjective Patient feels better, not more short of air Vitals Vital Signs Date Time Temp Pulse Resp B/P (MAP) Pulse Ox O2 Delivery O2 Flow Rate FiO2 04/23/21 08:47 84 137/85 04/23/21 07:20 96 Room Air 04/23/21 07:00 97.4 18 97.4 ROS: No Nausea, No Chest Pain, No Abdominal Pain, No Increase Cough General: Alert Lungs: Clear Cardiovascular: S1, S2 Abdomen: Soft Neuro Exam: Alert Extremities: No Edema Skin: Warm Labs Laboratory Tests Test 04/22/21 07:10 04/23/21 07:35 White Blood Count 6.3 x10^3/uL (4.0-11.0) 6.2 x10^3/uL (4.0-11.0) Red Blood Count 5.06 x10^6/uL (3.50-5.40) 4.93 x10^6/uL (3.50-5.40) Hemoglobin 15.2 g/dL (12.0-15.5) 14.9 g/dL (12.0-15.5) Hematocrit 45.7 % (36.0-47.0) 44.4 % (36.0-47.0) Mean Corpuscular Volume 90 fL (79-100) 90 fL (79-100) Mean Corpuscular Hemoglobin 30 pg (25-35) 30 pg (25-35) Mean Corpuscular Hemoglobin Concent 33 g/dL (31-37) 34 g/dL (31-37) Red Cell Distribution Width 14.0 % (11.5-14.5) 13.6 % (11.5-14.5) Platelet Count 220 x10^3/uL (140-400) 227 x10^3/uL (140-400) Neutrophils (%) (Auto) 64 % (31-73) 64 % (31-73) Lymphocytes (%) (Auto) 23 % (24-48) 24 % (24-48) Monocytes (%) (Auto) 9 % (0-9) 8 % (0-9) Eosinophils (%) (Auto) 4 % (0-3) 4 % (0-3) Basophils (%) (Auto) 0 % (0-3) 0 % (0-3) Neutrophils # (Auto) 4.0 x10^3/uL (1.8-7.7) 4.0 x10^3/uL (1.8-7.7) Lymphocytes # (Auto) 1.5 x10^3/uL (1.0-4.8) 1.5 x10^3/uL (1.0-4.8) Monocytes # (Auto) 0.6 x10^3/uL (0.0-1.1) 0.5 x10^3/uL (0.0-1.1) Eosinophils # (Auto) 0.2 x10^3/uL (0.0-0.7) 0.2 x10^3/uL (0.0-0.7) Basophils # (Auto) 0.0 x10^3/uL (0.0-0.2) 0.0 x10^3/uL (0.0-0.2) Sodium Level 142 mmol/L (136-145) 141 mmol/L (136-145) Potassium Level 4.5 mmol/L (3.5-5.1) 4.5 mmol/L (3.5-5.1) Chloride Level 105 mmol/L (98-107) 105 mmol/L (98-107) Carbon Dioxide Level 31 mmol/L (21-32) 30 mmol/L (21-32) Anion Gap 6 (6-14) 6 (6-14) Blood Urea Nitrogen 9 mg/dL (7-20) 11 mg/dL (7-20) Creatinine 0.9 mg/dL (0.6-1.0) 0.8 mg/dL (0.6-1.0) Estimated GFR (Cockcroft-Gault) 60.6 69.4 Glucose Level 88 mg/dL (70-99) 94 mg/dL (70-99) Calcium Level 9.4 mg/dL (8.5-10.1) 9.3 mg/dL (8.5-10.1) Laboratory Tests Test 04/23/21 07:35 White Blood Count 6.2 x10^3/uL (4.0-11.0) Red Blood Count 4.93 x10^6/uL (3.50-5.40) Hemoglobin 14.9 g/dL (12.0-15.5) Hematocrit 44.4 % (36.0-47.0) Mean Corpuscular Volume 90 fL (79-100) Mean Corpuscular Hemoglobin 30 pg (25-35) Mean Corpuscular Hemoglobin Concent 34 g/dL (31-37) Red Cell Distribution Width 13.6 % (11.5-14.5) Platelet Count 227 x10^3/uL (140-400) Neutrophils (%) (Auto) 64 % (31-73) Lymphocytes (%) (Auto) 24 % (24-48) Monocytes (%) (Auto) 8 % (0-9) Eosinophils (%) (Auto) 4 % (0-3) Basophils (%) (Auto) 0 % (0-3) Neutrophils # (Auto) 4.0 x10^3/uL (1.8-7.7) Lymphocytes # (Auto) 1.5 x10^3/uL (1.0-4.8) Monocytes # (Auto) 0.5 x10^3/uL (0.0-1.1) Eosinophils # (Auto) 0.2 x10^3/uL (0.0-0.7) Basophils # (Auto) 0.0 x10^3/uL (0.0-0.2) Sodium Level 141 mmol/L (136-145) Potassium Level 4.5 mmol/L (3.5-5.1) Chloride Level 105 mmol/L (98-107) Carbon Dioxide Level 30 mmol/L (21-32) Anion Gap 6 (6-14) Blood Urea Nitrogen 11 mg/dL (7-20) Creatinine 0.8 mg/dL (0.6-1.0) Estimated GFR (Cockcroft-Gault) 69.4 Glucose Level 94 mg/dL (70-99) Calcium Level 9.3 mg/dL (8.5-10.1) Medications Active Scripts Medications Dose Route/Sig Max Daily Dose Days Date Category Pravastatin Sodium 10 Mg Tablet 10 Mg PO DAILY 10/08/20 Reported Tramadol Hcl 50 Mg Tablet 50 Mg PO Q6HRS PRN 10/08/20 Reported Fluticasone Propionate Nasal [place] (Fluticasone Propionate) 16 Gm [place].susp 2 [place] NS DAILY 09/02/18 Reported Anoro Ellipta 62.5-25 Mcg Inh (Umeclidinium Brm/Vilanterol Tr) 1 Each Disk.w.dev 1 Each IH DAILY 09/02/18 Reported Proair Hfa Inhaler (Albuterol Sulfate) 8.5 Gm Hfa.aer.ad 1 Puff INH PRN Q6HRS PRN 09/02/18 Reported Toprol Xl (Metoprolol Succinate) 25 Mg Tab.er.24h 12.5 Mg PO DAILY 09/02/18 Reported Aspir-Low (Aspirin) 81 Mg Tablet.dr 81 Mg PO DAILY 09/02/18 Reported Comments Chest x-ray reviewed 04/23/2021. No definite pneumothorax seen. Patient's chest tube was clamped in the last 24 hours Chest x-ray reviewed 04/21/2021. No pneumothorax Chest x-ray reviewed 04/20/2021. Mild improvement in right apical pneumothorax. Chest x-ray reviewed 04/19/2021. Slight increase in right upper lobe pneumothorax, still about 10 to 15%. Unchanged subcu air Impression . IMPRESSION: Pneumothorax, status post fine needle aspiration of a right-sided pulmonary nodule, expected in up to 20% of the cases. Chest tube clamped in the last 24 hours. No definite pneumothorax seen 2. History of lung cancer 3. Tobacco dependent 4. COPD Plan . Chest x-ray reviewed from today. Tube was clamped in the last 24 hours. There is no definite pneumothorax. Chest tube removed this morning. Patient can be discharged from a pulmonary standpoint. Pathology consistent with squamous cell lung carcinoma Follow-up with radiation oncology as an outpatient post discharge EFREN THOMPSON MD Apr 23, 2021 10:12
--- NOTE | 2021-04-23 10:19 | PDOC3 ---
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 She actually has undergone radiation therapy and I think chemotherapy. Things have been going well, but she now has developed a new left lung nodule. The patient was sent in to Dr. Parson of the Interventional Radiology department to do a biopsy of the lung nodule. Postprocedure, she had a small pneumothorax. Dr. Parson called me and explained the situation. We have decided to admit the patient. We placed a chest tube. We are consulting Pulmonary Medicine. 04/17 Patient evaluated at bedside, she was resting when evaluated. Chest tube is still in place. Chest x-ray x-ray shows mild worsening of pneumo. Pulmonary consulted evaluating. 04/18/2021 No acute events overnight. Patient's chest tube does not have any air leak today. We will continue on suction. Repeat chest x-ray daily and as needed. Will defer to pulmonology as they are also following and managing chest tube. We will plan on discharge once chest tube has been discontinued and repeat chest x-ray shows no more pneumothorax. Patient's chart, labs, images were reviewed and discussed with RN 04/19/2021 No acute events overnight. Patient saturating well on 96% on room air. Decreased in her apical pneumothorax seen on chest x-ray. Patient's chart, labs, images were reviewed and discussed with RN 04/20/2021 No acute events overnight. Patient seen and examined bedside. Chest wall to suction with minimal air leak. No dyspnea. Chest x-ray showed decreased and apical pneumothorax from 20 mm to 8 mm. In addition to my E/M visit, advance care planning done with A total time of 20 minutes was spent from 8:00 to 820 face to face in discussion with the patient regarding their goals of care, and explained to her the options for conservative versus surgical management. The more aggressive route would be to do a pleurodesis in order to keep the collapsed lung adhered to the pleural membrane if possible. Mayito out diagram for patient for better understanding. Patient's chart, labs, images were reviewed and discussed with RN 04/21 Patient evaluated at bedside. No major events overnight. This morning denying any sort of shortness of breath or cough. Chest x-ray looks improved this morning. Chest tube to waterseal today per pulmonary. Daily chest x-ray. 04/22 evaluated at bedside. denying any sort of shortness of breath or cough. Chest x- ray looks improved this morning. Chest tube to waterseal today per pulmonary. Daily chest x-ray. clamp the chest tube 24 hrs. If the lung remains inflated, will dc tube in am Pathology consistent with squamous cell lung carcinoma d/w rn 04-23 Chest x-ray reviewed from today. Tube was clamped in the last 24 hours. no pneumothorax. Chest tube removed this morning. Patient can be discharged from a pulmonary standpoint. Pathology consistent with squamous cell lung carcinoma refused home health needs to see PCP IN 3-10 DAYS, PULMONARY 2 WEEKS d/c planning 33 min Vitals Vitals Vital Signs Date Time Temp Pulse Resp B/P (MAP) Pulse Ox O2 Delivery O2 Flow Rate FiO2 04/23/21 07:20 96 Room Air 04/23/21 07:00 97.4 84 18 137/85 (102) 97.4 Physical Exam General: Alert, Oriented X3, Cooperative, No acute distress Heart: Regular rate, Normal S1, Normal S2 Lungs: Clear Abdomen: Normal bowel sounds, Soft, No tenderness Extremities: No clubbing, No cyanosis, No edema, Normal pulses Skin: No significant lesion Brief Hospital Course Ms. Sampson is a 80 old [sex] who presented with [ PNEUMOTHORAX] CONDITION AT DISCHARGE: Improved Discharge Medications Current Medications Lidocaine HCl (Buffered Lidocaine 1%) 3 ml STK-MED ONCE .ROUTE ; Start 04/16/21 at 10:12; Stop 04/16/21 at 10:12; Status DC Midazolam HCl (Versed) 2 mg STK-MED ONCE .ROUTE ; Start 04/16/21 at 10:37; Stop 04/16/21 at 10:37; Status DC Fentanyl Citrate (Fentanyl 2ml Vial) 100 mcg STK-MED ONCE .ROUTE ; Start 04/16/21 at 10:37; Stop 04/16/21 at 10:37; Status DC Lidocaine HCl (Buffered Lidocaine 1%) 5 ml 1X ONCE IJ Last administered on 04/16/21at 11:09; Start 04/16/21 at 11:00; Stop 04/16/21 at 11:01; Status DC Midazolam HCl (Versed) 1 mg 1X ONCE IV Last administered on 04/16/21at 11:10; Start 04/16/21 at 11:00; Stop 04/16/21 at 11:01; Status DC Fentanyl Citrate (Fentanyl 2ml Vial) 50 mcg 1X ONCE IV Last administered on 04/16/21at 11:10; Start 04/16/21 at 11:00; Stop 04/16/21 at 11:01; Status DC Albuterol Sulfate (Ventolin Neb Soln) 2.5 mg PRN Q6HRS PRN NEB SHORTNESS OF BREATH; Start 04/16/21 at 21:30 Aspirin (Ecotrin) 81 mg DAILY PO Last administered on 04/23/21at 08:45; Start 04/17/21 at 09:00 Fluticasone Propionate (Flonase) 2 spray DAILY NS Last administered on 04/23/21at 08:48; Start 04/17/21 at 09:00 Metoprolol Succinate (Toprol Xl) 12.5 mg DAILY PO Last administered on 04/23/21at 08:47; Start 04/17/21 at 09:00 Atorvastatin Calcium (Lipitor) 5 mg QHS PO Last administered on 04/22/21at 20:34; Start 04/16/21 at 22:00 Budesonide (Pulmicort) 0.5 mg RTBID NEB Last administered on 04/23/21at 07:19; Start 04/17/21 at 08:00 Oxycodone/ Acetaminophen (Percocet 5/325) 1 tab PRN Q6HRS PRN PO PAIN; Start 04/16/21 at 21:15 Ibuprofen (Motrin) 400 mg PRN Q6HRS PRN PO INFLAMMATION; Start 04/16/21 at 21:15 Albuterol/ Ipratropium (Duoneb) 3 ml RTQID NEB Last administered on 04/23/21at 07:19; Start 04/17/21 at 08:00 Active Scripts Active Reported Pravastatin Sodium 10 Mg Tablet 10 Mg PO DAILY Tramadol Hcl 50 Mg Tablet 50 Mg PO Q6HRS PRN Fluticasone Propionate Nasal [place] (Fluticasone Propionate) 16 Gm [place].susp 2 [place] NS DAILY Anoro Ellipta 62.5-25 Mcg Inh (Umeclidinium Brm/Vilanterol Tr) 1 Each Disk.w.dev 1 Each IH DAILY Proair Hfa Inhaler (Albuterol Sulfate) 8.5 Gm Hfa.aer.ad 1 Puff INH PRN Q6HRS PRN Toprol Xl (Metoprolol Succinate) 25 Mg Tab.er.24h 12.5 Mg PO DAILY Aspir-Low (Aspirin) 81 Mg Tablet.dr 81 Mg PO DAILY Vital Signs Vital Signs Date Time Temp Pulse Resp B/P (MAP) Pulse Ox O2 Delivery O2 Flow Rate FiO2 04/23/21 08:47 84 137/85 04/23/21 07:20 96 Room Air 04/23/21 07:00 97.4 18 97.4 Labs Laboratory Tests Test 04/22/21 07:10 04/23/21 07:35 White Blood Count 6.3 x10^3/uL (4.0-11.0) 6.2 x10^3/uL (4.0-11.0) Red Blood Count 5.06 x10^6/uL (3.50-5.40) 4.93 x10^6/uL (3.50-5.40) Hemoglobin 15.2 g/dL (12.0-15.5) 14.9 g/dL (12.0-15.5) Hematocrit 45.7 % (36.0-47.0) 44.4 % (36.0-47.0) Mean Corpuscular Volume 90 fL (79-100) 90 fL (79-100) Mean Corpuscular Hemoglobin 30 pg (25-35) 30 pg (25-35) Mean Corpuscular Hemoglobin Concent 33 g/dL (31-37) 34 g/dL (31-37) Red Cell Distribution Width 14.0 % (11.5-14.5) 13.6 % (11.5-14.5) Platelet Count 220 x10^3/uL (140-400) 227 x10^3/uL (140-400) Neutrophils (%) (Auto) 64 % (31-73) 64 % (31-73) Lymphocytes (%) (Auto) 23 % (24-48) 24 % (24-48) Monocytes (%) (Auto) 9 % (0-9) 8 % (0-9) Eosinophils (%) (Auto) 4 % (0-3) 4 % (0-3) Basophils (%) (Auto) 0 % (0-3) 0 % (0-3) Neutrophils # (Auto) 4.0 x10^3/uL (1.8-7.7) 4.0 x10^3/uL (1.8-7.7) Lymphocytes # (Auto) 1.5 x10^3/uL (1.0-4.8) 1.5 x10^3/uL (1.0-4.8) Monocytes # (Auto) 0.6 x10^3/uL (0.0-1.1) 0.5 x10^3/uL (0.0-1.1) Eosinophils # (Auto) 0.2 x10^3/uL (0.0-0.7) 0.2 x10^3/uL (0.0-0.7) Basophils # (Auto) 0.0 x10^3/uL (0.0-0.2) 0.0 x10^3/uL (0.0-0.2) Sodium Level 142 mmol/L (136-145) 141 mmol/L (136-145) Potassium Level 4.5 mmol/L (3.5-5.1) 4.5 mmol/L (3.5-5.1) Chloride Level 105 mmol/L (98-107) 105 mmol/L (98-107) Carbon Dioxide Level 31 mmol/L (21-32) 30 mmol/L (21-32) Anion Gap 6 (6-14) 6 (6-14) Blood Urea Nitrogen 9 mg/dL (7-20) 11 mg/dL (7-20) Creatinine 0.9 mg/dL (0.6-1.0) 0.8 mg/dL (0.6-1.0) Estimated GFR (Cockcroft-Gault) 60.6 69.4 Glucose Level 88 mg/dL (70-99) 94 mg/dL (70-99) Calcium Level 9.4 mg/dL (8.5-10.1) 9.3 mg/dL (8.5-10.1) Laboratory Tests Test 04/23/21 07:35 White Blood Count 6.2 x10^3/uL (4.0-11.0) Red Blood Count 4.93 x10^6/uL (3.50-5.40) Hemoglobin 14.9 g/dL (12.0-15.5) Hematocrit 44.4 % (36.0-47.0) Mean Corpuscular Volume 90 fL (79-100) Mean Corpuscular Hemoglobin 30 pg (25-35) Mean Corpuscular Hemoglobin Concent 34 g/dL (31-37) Red Cell Distribution Width 13.6 % (11.5-14.5) Platelet Count 227 x10^3/uL (140-400) Neutrophils (%) (Auto) 64 % (31-73) Lymphocytes (%) (Auto) 24 % (24-48) Monocytes (%) (Auto) 8 % (0-9) Eosinophils (%) (Auto) 4 % (0-3) Basophils (%) (Auto) 0 % (0-3) Neutrophils # (Auto) 4.0 x10^3/uL (1.8-7.7) Lymphocytes # (Auto) 1.5 x10^3/uL (1.0-4.8) Monocytes # (Auto) 0.5 x10^3/uL (0.0-1.1) Eosinophils # (Auto) 0.2 x10^3/uL (0.0-0.7) Basophils # (Auto) 0.0 x10^3/uL (0.0-0.2) Sodium Level 141 mmol/L (136-145) Potassium Level 4.5 mmol/L (3.5-5.1) Chloride Level 105 mmol/L (98-107) Carbon Dioxide Level 30 mmol/L (21-32) Anion Gap 6 (6-14) Blood Urea Nitrogen 11 mg/dL (7-20) Creatinine 0.8 mg/dL (0.6-1.0) Estimated GFR (Cockcroft-Gault) 69.4 Glucose Level 94 mg/dL (70-99) Calcium Level 9.3 mg/dL (8.5-10.1) Allergies Allergies Coded Allergies Type Severity Reaction Last Updated Verified Sulfa (Sulfonamide Antibiotics) Adverse Reaction Intermediate Nausea 09/02/18 Yes ciprofloxacin Adverse Reaction Intermediate Nausea 09/02/18 Yes Disposition/Orders: D/C to Home Justicifation of Admission Dx: Justifications for Admission: Justification of Admission Dx: Yes Chronic Renal Failure: Metabolic Abnormality RONY ORNELAS MD Apr 23, 2021 10:19
[2021-04-23] MEDS ORDERED: IPRA3AMP29 NEB (10:21)
[2021-04-23] MEDS ORDERED: IBUP-1027 PO (10:21)
--- NOTE | 2021-04-23 10:22 | DISCH ---
DISCHARGE INSTRUCTIONS Condition on Discharge Condition on Discharge: Stable Activity After Discharge Activity Instructions for Disc: Activity as tolerated Lifting Instructions after Dis: No heavy lifting, No pulling or pushing Driving Instructions after Dis: Do not drive Diet after Discharge Diet after Discharge: Cardiac Liquid Texture: Thin Liquid Checks after Discharge Checks after discharge: Check blood press - daily Contacting the DR. after DC Call your doctor for: If your condition worsens Follow-Up Follow up with: SEE PCP IN 3-10 DAY, PULMONARY IN 2 WEEKS Treatment/Equipment after DC Adaptive Equipment Issued: None Discharge Respiratory Equipmen: Nebulizer RONY ORNELAS MD Apr 23, 2021 10:22
--- NOTE | 2021-04-23 10:57 | NUR ---
SW following. Discussed with RN, pt had chest tube removed. Discharge order. RN advised no SW needs.
[2021-04-23 11:21] VITALS: BP 125/61
--- NOTE | 2021-04-23 12:30 | NUR ---
Patient was escorted out by student union consultant to main entrance by wheelchair with family.
== END 2021-04-23 12:30 | disposition home or self-care (01) | DRG 200 ==
LOC: INTRAD 08:55 → 5 SOUTH 11:37
PROVIDERS: ADMIT Internal Medicine; ATTEND Internal Medicine
PROC: 0W9930Z Drainage of Right Pleural Cavity with Drainage Device, Percutaneous Approach (ICD-10-PCS; principal; 2021-04-16)
PROC: 0BBF3ZX Excision of Right Lower Lung Lobe, Percutaneous Approach, Diagnostic (ICD-10-PCS; 2021-04-16)
DX: J95.811 Postprocedural pneumothorax (principal); C34.91 Malignant neoplasm of unspecified part of right bronchus or lung; Z51.81 Encounter for therapeutic drug level monitoring; E78.5 Hyperlipidemia, unspecified; I10 Essential (primary) hypertension; J44.9 Chronic obstructive pulmonary disease, unspecified; Z83.3 Family history of diabetes mellitus; Z85.118 Personal history of other malignant neoplasm of bronchus and lung; Z92.3 Personal history of irradiation; J30.9 Allergic rhinitis, unspecified; M19.90 Unspecified osteoarthritis, unspecified site; Z88.2 Allergy status to sulfonamides; Z88.8 Allergy status to other drugs, medicaments and biological substances; F17.210 Nicotine dependence, cigarettes, uncomplicated
CPT/HCPCS: 32408; 32557; 36415; 71045; 80048; 85025; 85610; 88305; 88341; 88342; 94640; 94760; 99152; 99153; C1892; J2250; J3010; J3490; 97110-GP; 97116-GP; 97530-GP; 97535-GO; G0378; J7626

== ENCOUNTER → 2021-10-18 | Outpatient (CLI) | payer MEDICARE, OTHER ==
[~2021-10-18] MED LIST changes: +IBUP-1027 PO; +IPRA3AMP29 NEB
--- NOTE | 2021-10-18 14:21 | RAD ---
FDG PET/CT SKULL BASE TO UPPER THIGHS Clinical Indication: Lung malignancy, restaging. Comparison: FDG PET/CT, skull base to upper thighs April 05, 2021. Technique: Patient blood glucose at the time of injection is 107 mg/dL. The patient was administered 12.3 mCi of F-18 FDG intravenously. The patient rested quietly during a 60 minute uptake period. Then PET imaging from the skull base to the upper thighs was performed. A noncontrast CT was acquired ove r this same area. The CT is for attenuation correction and anatomic localization, it is not of diagno stic quality and is not intended to diagnose disease independently of the PET. Reported standard upta ke values (SUV) are the maximum SUV within a lesional volumetric region of interest. SUV normalizatio n is via body mass. PQRS Compliance Statement: One or more of the following individualized dose reduction techniques were utilized for this examinat ion: 1. Automated exposure control 2. Adjustment of the mA and/or kV according to patient size 3. Use of iterative reconstruction technique Findings: Mediastinal blood pool SUV reference value: 2.5 Max, 2.2 mean. Head and neck: There is no evidence of FDG-avid metastatic disease. There is symmetric FDG uptake of the vocalis muscles, correlate to whether the patient was talking du ring the FDG uptake period. Chest: Spiculated nodule in the anterior right upper lobe has increased in size measuring 1.2 cm, previously 0.7 cm, SUVmax 6.2. This nodule was previously described as in conglomerate with an irregular nodule just inferior. The more inferior nodule has partially regressed and now demonstrates minimal FDG upt arnulfo. The conglomerate nodules on the prior study demonstrated SUVmax 3.9. Therefore the FDG avidity h as increased. More inferior in the anterior right upper lobe adjacent to the mediastinum there is a t iny nodule with FDG uptake. The nodule measures on the order of 5 mm on image 57, SUVmax 2.6. The irregular subpleural opacity in the anterior left upper lobe now has SUVmax of 1.7. The uptake is less than blood pool. The spiculated nodule in the superior segment of the right lower lobe now demonstrates minimal FDG up take, less than blood pool and barely exceeding lung parenchyma background. The nodule has decreased in size now measuring 6 mm. FDG uptake of the right hilum equal to blood pool is unchanged. Coronary artery disease. Abdomen and pelvis: Thickening of the adrenal glands is unchanged. Right adrenal gland has SUVmax 2.9, left adrenal gland 2.9. On prior study SUVmax 4.3 and 4.8, respectively. Cholecystectomy. Sigmoid colon diverticulosis. Musculoskeletal: There is no evidence of FDG-avid disease. IMPRESSION: 1. Spiculated nodule in the anterior right upper lobe has increased in size and FDG avidity, SUVmax 6.2. Findings suggest viable tumor. 2. More inferior in the anterior right upper lobe adjacent to the mediastinum there is a tiny nodule that is mildly FDG avid, indeterminate. This finding is new. 3. The spiculated nodule in the superior segment of the right lower lobe has decreased in size and i s no longer FDG avid suggesting treatment response. 4. Subpleural opacity in the anterior left upper lobe has FDG uptake less than blood pool suggesting scarring. 5. FDG uptake of the adrenal glands has decreased. Electronically signed by: Kishore Aguilar MD (10/18/2021 2:18 PM) [id number]
== END ==
LOC: PETSC 09:59
PROVIDERS: ATTEND Radiology Radiation Oncology
DX: C78.01 Secondary malignant neoplasm of right lung (principal); C34.12 Malignant neoplasm of upper lobe, left bronchus or lung; R91.8 Other nonspecific abnormal finding of lung field; I25.10 Atherosclerotic heart disease of native coronary artery without angina pectoris; K57.30 Diverticulosis of large intestine without perforation or abscess without bleeding; Z90.49 Acquired absence of other specified parts of digestive tract
CPT/HCPCS: 78815; A9552

== ENCOUNTER → 2021-10-24 | Outpatient (CLI) | payer MEDICARE, OTHER | LOC: CT 10:04 | PROVIDERS: ATTEND Radiology Radiation Oncology | DX: C78.01 Secondary malignant neoplasm of right lung (principal); C34.12 Malignant neoplasm of upper lobe, left bronchus or lung | CPT/HCPCS: 76380 ==